=== PATIENT | male | born 1930 | race African-American/Black ===

== ENCOUNTER 2016-12-27 11:11 | Inpatient (IN) | payer MEDICARE ==
[~2016-12-27] VITALS: Ht 177.8 cm; Wt 63.1 kg
[2016-12-27] VITALS (10 sets, daily range): BP systolic 147–167; BP diastolic 75–96; PULSE 71–100; RESP 16–18; TEMP 97.4–98.1; O2SAT 95–99
[~2016-12-27 11:11] MED LIST: ARIC5TAB PO; AUGM500T7 PO; GLIP10 PO; GLIP5 PO; LACT20SO4 PO; LEVO75TA3 PO; LOVA20TA PO
[2016-12-27] MEDS ORDERED: LISI10TA3 PO (11:40)
[2016-12-27] MEDS ORDERED: LEVO75TA3 PO (11:40)
[2016-12-27] MEDS ORDERED: LOVA20TA PO (11:40)
[2016-12-27] MEDS ORDERED: ARIC10TA PO (11:40)
[2016-12-27] MEDS ORDERED: GLIM4TAB PO (11:41)
[2016-12-27] MEDS ORDERED: SODIUM CHLOR 0.9% 1000 ML INJ 1,000 ML IV ONE ×2 (12:09→12:39)
--- NOTE | 2016-12-27 12:13 | PD ---
HPI Chief Complaint: Diabetic Time Seen by Provider: 12:13 Travel History International Travel<30 days: No Contact w/Intl Traveler<30days: No Traveled to known affect area: No History of Present Illness HPI 86-year-old male with a history of hypertension, diabetes, hypothyroidism, hyperlipidemia, dementia, chronic kidney disease is brought to the emergency department by EMS for evaluation of loss of appetite, weakness and confusion for 2 days. Per EMS the patient was brought from home where he lives with his . He has not been eating for 2 days and has not taken any of his medications in 2 days. Per EMS the patient is slightly more confused than his baseline. Per EMS his fingerstick glucose was critically high. The patient is awake, alert and oriented to person and place. He is unsure of the year and why he is in the hospital. He denies any complaints. He denies any chest pain , shortness of breath, abdominal pain, nausea, vomiting, diarrhea on the headache, lightheadedness, dizziness. No other complaints. PFSH Past Medical History Cardiovascular Problems: Yes High Cholesterol: Yes Dementia: Yes Diabetes: Yes Patient Takes Glucophage: No Diminished Hearing: No Genitourinary: No Hypertension: Yes Reproductive: No Respiratory: No Thyroid Disease: Yes Tetanus Vaccination: Unknown Influenza Vaccination: Yes Social History Alcohol Use: No Tobacco Use: No Substance Use: No Allergies-Medications (Allergen,Severity, Reaction): Coded Allergies: No Known Allergies (Verified , 12/27/16) Reported Meds & Prescriptions Reported Meds & Active Scripts Active Reported Glimepiride 4 Mg Tab 4 Mg PO BIDAC Lovastatin 20 Mg Tab 20 Mg PO DAILY Lisinopril 10 Mg Tab 10 Mg PO DAILY Aricept (Donepezil) 10 Mg Tab 10 Mg PO HS Levothyroxine (Levothyroxine Sodium) 75 Mcg Tab 75 Mcg PO DAILY Review of Systems Except as stated in HPI: all other systems reviewed are Neg Physical Exam Narrative GENERAL: Thin elderly male patient in no acute distress. SKIN: Warm and dry. HEAD: Normocephalic and atraumatic. EYES: No injection, drainage, or hyphema noted. PERRLA. EOMI. ENT: Lips are dry, poor dentition. No nasal drainage noted. Oropharynx is clear. NECK: Supple and the trachea is midline. CARDIOVASCULAR: Regular rate and rhythm. RESPIRATORY: Breath sounds are equal bilaterally with no accessory muscle use, wheezing, rhonchi, or crackles. GASTROINTESTINAL: Abdomen is soft, non-tender, and nondistended. MUSCULOSKELETAL: No obvious deformities, swelling, cyanosis, or ecchymosis is present throughout the upper and lower extremities. Patient has full range of motion without any signs of neurovascular compromise. NEUROLOGICAL: Awake, alert, and oriented. Normal speech and gait. Cranial nerves are grossly intact. Data Data Last Documented VS Vital Signs Date Time Temp Pulse Resp B/P Pulse Ox O2 Delivery O2 Flow Rate FiO2 12/27/16 11:50 18 98 Room Air 12/27/16 11:21 96 12/27/16 11:21 97.8 156/84 Orders Electrocardiogram (12/27/16 ) Complete Blood Count With Diff (12/27/16 12:09) Comprehensive Metabolic Panel (12/27/16 12:09) Beta Hydroxybutyrate (Acetone) (12/27/16 12:09) Urinalysis - C+S If Indicated (12/27/16 12:09) Chest, Single Ap (12/27/16 12:09) Ecg Monitoring (12/27/16 12:09) Iv Access Insert/Monitor (12/27/16 12:09) Oximetry (12/27/16 12:09) NPO (12/27/16 12:09) Sodium Chlor 0.9% 1000 Ml Inj (Ns 1000 M (12/27/16 12:09) Sodium Chlor 0.9% 1000 Ml Inj (Ns 1000 M (12/27/16 12:39) Sodium Chloride 0.9% Flush (Ns Flush) (12/27/16 12:15) Troponin I (12/27/16 12:12) Community Relations Police Lieutenant / Telemetry [id number] (12/27/16 13:25) ^ Insert Iv (12/27/16 13:25) Diet Npo (12/27/16 Lunch) Sodium Chlor 0.9% 1000 Ml Inj (Ns 1000 M (12/27/16 13:25) Dext 5%-Nacl 0.9% 1000 Ml Inj (D5w-Ns 10 (12/27/16 13:25) Insulin Human Regular Inj (Novolin R Inj (12/27/16 13:30) Insulin Regular (Iv Infusion) (Novolin R (12/27/16 13:30) Potassium Chlor 40 Meq Premix (Kcl 40 Me (12/27/16 13:30) Potassium Chlor 40 Meq Premix (Kcl 40 Me (12/27/16 13:30) Potassium Chlor 20 Meq Premix (Kcl 20 Me (12/27/16 13:30) Potassium Chlor 20 Meq Premix (Kcl 20 Me (12/27/16 13:30) Potassium Chlor 20 Meq Premix (Kcl 20 Me (12/27/16 13:30) Potassium Chlor 20 Meq Premix (Kcl 20 Me (12/27/16 13:30) Potassium Chlor 20 Meq Premix (Kcl 20 Me (12/27/16 13:30) Potassium Chlor 20 Meq Premix (Kcl 20 Me (12/27/16 13:30) Sodium Bicarbonate 8.4% Inj (Sodium Bica (12/27/16 13:30) Sodium Bicarbonate 8.4% Inj (Sodium Bica (12/27/16 13:30) Sodium Phosphate Inj (Sodium Phosphate I (12/27/16 13:30) Hemoglobin (Hgb) A1c (12/27/16 13:25) Basic Metabolic Panel (Bmp) (12/27/16 18:25) Basic Metabolic Panel (Bmp) (12/28/16 00:25) Basic Metabolic Panel (Bmp) (12/28/16 06:25) Basic Metabolic Panel (Bmp) (12/28/16 12:25) Magnesium (Mg) (12/27/16 18:25) Magnesium (Mg) (12/28/16 00:25) Magnesium (Mg) (12/28/16 06:25) Magnesium (Mg) (12/28/16 12:25) Phosphorus (Po4) (12/27/16 18:25) Phosphorus (Po4) (12/28/16 00:25) Phosphorus (Po4) (12/28/16 06:25) Phosphorus (Po4) (12/28/16 12:25) Beta Hydroxybutyrate (Acetone) (12/28/16 00:25) Beta Hydroxybutyrate (Acetone) (12/28/16 12:25) Admit Order (Ed Use Only) (12/27/16 13:36) Labs Laboratory Tests Test 12/27/16 12/27/16 12:11 12:50 White Blood Count 8.0 TH/MM3 Red Blood Count 4.47 MIL/MM3 Hemoglobin 13.6 GM/DL Hematocrit 44.8 % Mean Corpuscular Volume 100.3 FL Mean Corpuscular Hemoglobin 30.5 PG Mean Corpuscular Hemoglobin 30.4 % Concent Red Cell Distribution Width 14.6 % Platelet Count 105 TH/MM3 Mean Platelet Volume 10.7 FL Neutrophils (%) (Auto) 79.1 % Lymphocytes (%) (Auto) 13.3 % Monocytes (%) (Auto) 7.4 % Eosinophils (%) (Auto) 0.0 % Basophils (%) (Auto) 0.2 % Neutrophils # (Auto) 6.3 TH/MM3 Lymphocytes # (Auto) 1.1 TH/MM3 Monocytes # (Auto) 0.6 TH/MM3 Eosinophils # (Auto) 0.0 TH/MM3 Basophils # (Auto) 0.0 TH/MM3 CBC Comment DIFF FINAL Differential Comment Sodium Level 149 MEQ/L Potassium Level 5.6 MEQ/L Chloride Level 113 MEQ/L Carbon Dioxide Level 20.7 MEQ/L Anion Gap 15 MEQ/L Blood Urea Nitrogen 79 MG/DL Creatinine 4.90 MG/DL Estimat Glomerular Filtration 14 ML/MIN Rate Random Glucose 876 MG/DL Calcium Level 9.4 MG/DL Total Bilirubin 0.8 MG/DL Aspartate Amino Transf 20 U/L (AST/SGOT) Alanine Aminotransferase 27 U/L (ALT/SGPT) Alkaline Phosphatase 74 U/L Troponin I 0.07 NG/ML Total Protein 8.5 GM/DL Albumin 3.9 GM/DL B-Hydroxybutyrate 4.46 MMOL/L Urine Color LIGHT-YELLOW Urine Turbidity CLEAR Urine pH 5.0 Urine Specific [place] 1.021 Urine Protein NEG mg/dL Urine Glucose (UA) 1000 mg/dL Urine Ketones 10 mg/dL Urine Occult Blood SMALL Urine Nitrite NEG Urine Bilirubin NEG Urine Urobilinogen LESS THAN 2.0 MG/DL Urine Leukocyte Esterase NEG Urine RBC LESS THAN 1 /hpf Urine WBC LESS THAN 1 /hpf Urine Bacteria RARE /hpf Urine Mucus FEW /lpf Microscopic Urinalysis Comment CULT NOT INDICATED MDM Medical Decision Making Medical Screen Exam Complete: Yes Emergency Medical Condition: Yes Differential Diagnosis DKA versus dehydration versus electrolyte abnormality versus UTI versus dementia Narrative Course 86-year-old male is brought to the emergency department by EMS for evaluation of confusion, weakness and loss of appetite for 2 days. Patient is afebrile, vital signs are stable. Fingerstick glucose is too high to read. On physical exam he appears clinically dehydrated. No focal neurologic deficits. IV access is obtained, labs have been drawn and sent. Patient is given 2 L of fluid. CBC is unremarkable. CMP shows acute kidney injury with an elevated creatinine of 4.9, BUN 79. Hyperkalemia with a potassium of 5.6, elevated bicarbonate of 20.7. Hyperglycemia critically elevated at 876. Troponin is elevated at 0.07, likely secondary to dehydration. Beta hydroxybutyrate is elevated at 4.46. Urinalysis shows glucosuria and 10 ketones. Chest x-ray is negative. The patient has DKA with acute kidney injury. He has remained stable and without complaint while here in the emergency department. He is placed on an insulin drip will be admitted to the ICU under [facility]'s service. I discussed the case with my attending physician Dr. Garcia who is aware of the patients history, physical examination findings, and treatment plan. Physician Communication Physician Communication I spoke with Dr. Payan [facility] who agrees to admit the patient to his service. Diagnosis Primary Impression: DKA (diabetic ketoacidoses) Qualified Code: E13.10 - Diabetic ketoacidosis without coma associated with type 2 diabetes mellitus Additional Impression: SARAI (acute kidney injury) Admitting Information Admitting Physician Requests: Admit Sherry Rendon Dec 27, 2016 12:13
[2016-12-27] MEDS ORDERED: SODIUM CHLORIDE 0.9% FLUSH 5 ML FLUSH IVF PRN (12:15)
--- NOTE | 2016-12-27 12:44 | RADRPT ---
EXAM DATE/TIME: 12/27/2016 12:09 [place] COMPARISON: CHEST SINGLE AP, November 03, 2014, 5:02. INDICATIONS : Short of breath. MEDICAL HISTORY : Hypertension. Diabetes mellitus type II. SURGICAL HISTORY : None. ENCOUNTER: Initial ACUITY: 1 day PAIN SCORE: 0/10 LOCATION: Bilateral chest FINDINGS: A single view of the chest demonstrates the lungs to be symmetrically aerated without evidence of mas s, infiltrate or effusion. The cardiomediastinal contours are unremarkable with age-appropriate athe rosclerotic unwinding of the aorta. Osseous structures are intact. CONCLUSION: No acute disease. No significant change has occurred. Christian Simon MD on December 27, 2016 at 12:42 Board Certified Radiologist. This report was verified electronically.
[2016-12-27 12:48] LABS: AUTOMATED NEUTROPHIL # 6.3 TH/MM3 (1.8-7.7); BASOPHIL % 0.2 % (0.0-2.0); HEMATOCRIT 44.8 % (39.0-51.0); HEMO FLAGS DIFF FINAL; LYMPH % 13.3 % (9.0-44.0); LYMPHOCYTE # 1.1 TH/MM3 (1.0-4.8); MEAN CELL VOLUME 100.3 FL (80.0-100.0); MEAN CORPUSCULAR HEMOGLOBIN 30.5 PG (27.0-34.0); MEAN CORPUSCULAR HGB CONC 30.4 % (32.0-36.0); MONO % 7.4 % (0.0-8.0); NEUT % 79.1 % (16.0-70.0); PLATELET COUNT 105 TH/MM3 (150-450); RED BLOOD COUNT 4.47 MIL/MM3 (4.50-5.90); RED CELL DISTRIBUTION WIDTH 14.6 % (11.6-17.2)
[2016-12-27 13:02] LABS: ANION GAP 15 MEQ/L (5-15); AST (GOT) 20 U/L (15-37); BICARBONATE 20.7 MEQ/L (21.0-32.0); BLOOD UREA NITROGEN 79 MG/DL (7-18); CHLORIDE 113 MEQ/L (98-107); GLOMERULAR FILTRATION RATE 14 ML/MIN (>89); POTASSIUM 5.6 MEQ/L (3.5-5.1); SODIUM (NA) 149 MEQ/L (136-145)
[2016-12-27 13:08] LABS: ALKALINE PHOSPHATASE 74 U/L (45-117); ALT (GPT) 27 U/L (12-78); BETA-HYDROXYBUTYRATE 4.46 MMOL/L (0.00-0.39); TOTAL BILIRUBIN ADULT 0.8 MG/DL (0.2-1.0)
[2016-12-27 13:18] LABS: BACTERIA, URINE RARE /hpf; BLOOD, URINE SMALL (NEG); COMMENT (UR) CULT NOT INDICATED; CULTURE IF INDICATED CULT NOT INDICATED; GLUCOSE,URINE 1000 mg/dL (NEG); KETONE, URINE 10 mg/dL (NEG); MUCUS URINE FEW /lpf (OCC); NITRITE,URINE NEG (NEG); URINE COLOR LIGHT-YELLOW (YELLW/STRAW)
[2016-12-27] MEDS ORDERED: DEXT 5%-NACL 0.9% 1000 ML INJ 1,000 ML IV SCH (13:25)
[2016-12-27] MEDS ORDERED: INSULIN HUMAN REGULAR 1,000 UNITS/10 ML VIAL IV PUSH ONE (13:30)
[2016-12-27] MEDS ORDERED: SODIUM PHOSPHATE INJ 15 MMOL in SODIUM CHLORIDE 0.9% INJ 100 ML IV PRN (13:30)
[2016-12-27] MEDS ORDERED: POTASSIUM CHLOR 20 MEQ PREMIX 100 ML IV PRN ×6 (13:30)
[2016-12-27] MEDS ORDERED: POTASSIUM CHLOR 40 MEQ PREMIX 100 ML IV PRN ×2 (13:30)
[2016-12-27] MEDS ORDERED: SODIUM BICARBONATE 8.4% SOLN 50 MEQ/50 ML VIAL IV PRN ×2 (13:30)
[2016-12-27] MEDS ORDERED: INSULIN REGULAR (IV INFUSION) 100 UNITS in SODIUM CHLORIDE 0.9% INJ 99 ML IV SCH (13:30)
[2016-12-27] MEDS: SODIUM CHLOR 0.9% 1000 ML INJ 1,000 ML IV SCH ×3 (13:48→23:00)
[2016-12-27] MEDS ORDERED: ACETAMINOPHEN 325 MG TAB PO PRN (14:15)
[2016-12-27] MEDS ORDERED: ONDANSETRON HCL 4 MG/2 ML VIAL IV PRN (14:15)
--- NOTE | 2016-12-27 14:21 | HHI.HP ---
HPI Service [facility] Hospitalists Primary Care Physician Raciel Avila M.D. Admission Diagnosis DKA, SARAI Chief Complaint: DKA, confusion Travel History International Travel<30 Days: No Contact w/Intl Traveler <30 Da: No Traveled to Known Affected Are: No History of Present Illness Mr. Gonzalez is an 84 y/o AAM with diabetes mellitus, noncompliant, hx of DKA, dementia, CKD, hypertension, dyslipidemia, and hypothyroidism who presented to the ED at [facility] with reported loss of appetite, weakness and confusion x 2 days. Per ED documentation the patient was brought from home where he lives with his . He has not been eating for 2 days and has not taken any of his medications in 2 days. The patient is reportedly more confused than his baseline. The patient is awake, alert and oriented to person and place but he is unable to provide any reliable information at the time of exam and the history was obtained from the chart and old records. Pts labs at admission noted acute kidney injury with an elevated creatinine of 4.9, BUN 79, GFR 14, hyperkalemia with a potassium of 5.6, elevated bicarbonate of 20.7, hyperglycemia critically elevated at 876. He was also noted to have a mildly elevated troponin at 0.07, likely secondary to dehydration. Beta hydroxybutyrate is elevated at 4.46. Urinalysis shows glucosuria and 10 ketones. He was started on Insulin gtt in the ER per protocol. He denies any complaints at the time of examination, specifically any chest pain, shortness of breath, abdominal pain, nausea, vomiting, diarrhea, headache, lightheadedness , or dizziness. Review of Systems ROS Limitations: Altered Mental Status, Poor Historian Past Family Social History Past Medical History History obtained from the chart and old records: Diabetes mellitus, noncompliant, hx of DKA HTN Hyperlipidemia Dementia Hypothyroidism CKD, stage 3 Past Surgical History None reported Reported Medications Glimepiride 4 Mg Tab 4 Mg PO BIDAC Lovastatin 20 Mg Tab 20 Mg PO DAILY Lisinopril 10 Mg Tab 10 Mg PO DAILY Aricept (Donepezil) 10 Mg Tab 10 Mg PO HS Levothyroxine (Levothyroxine Sodium) 75 Mcg Tab 75 Mcg PO DAILY Allergies: Coded Allergies: No Known Allergies (Verified , 12/27/16) Family History Unable to obtain from the pt Social History Unable to obtain from the pt. Physical Exam Vital Signs Vital Signs Date Time Temp Pulse Resp B/P Pulse Ox O2 Delivery O2 Flow Rate FiO2 12/27/16 11:50 18 98 Room Air 12/27/16 11:21 96 18 96 Room Air 12/27/16 11:21 97.8 100 18 156/84 95 Physical Exam GENERAL: This is a thin elderly male in NAD, confused. HEENT: Atraumatic. Normocephalic. No temporal or scalp tenderness. No scleral icterus. Poor dentition. Airway patent. NECK: Trachea midline, supple, nontender. CARDIO: Regular. RESP: CTA bilaterally. No wheezes, rales, or rhonchi. ABD: +BS, soft, non-tender, nondistended. EXT: Extremities without clubbing, cyanosis, or edema. NEURO: Awake and alert. Motor and sensory grossly within normal limits. Normal speech. Laboratory Laboratory Tests Test 12/27/16 12/27/16 12:11 12:50 White Blood Count 8.0 Red Blood Count 4.47 Hemoglobin 13.6 Hematocrit 44.8 Mean Corpuscular Volume 100.3 Mean Corpuscular Hemoglobin 30.5 Mean Corpuscular Hemoglobin 30.4 Concent Red Cell Distribution Width 14.6 Platelet Count 105 Mean Platelet Volume 10.7 Neutrophils (%) (Auto) 79.1 Lymphocytes (%) (Auto) 13.3 Monocytes (%) (Auto) 7.4 Eosinophils (%) (Auto) 0.0 Basophils (%) (Auto) 0.2 Neutrophils # (Auto) 6.3 Lymphocytes # (Auto) 1.1 Monocytes # (Auto) 0.6 Eosinophils # (Auto) 0.0 Basophils # (Auto) 0.0 CBC Comment DIFF FINAL Differential Comment Sodium Level 149 Potassium Level 5.6 Chloride Level 113 Carbon Dioxide Level 20.7 Anion Gap 15 Blood Urea Nitrogen 79 Creatinine 4.90 Estimat Glomerular Filtration 14 Rate Random Glucose 876 Calcium Level 9.4 Total Bilirubin 0.8 Aspartate Amino Transf 20 (AST/SGOT) Alanine Aminotransferase 27 (ALT/SGPT) Alkaline Phosphatase 74 Troponin I 0.07 Total Protein 8.5 Albumin 3.9 B-Hydroxybutyrate 4.46 Urine Color LIGHT-YELLOW Urine Turbidity CLEAR Urine pH 5.0 Urine Specific [place] 1.021 Urine Protein NEG Urine Glucose (UA) 1000 Urine Ketones 10 Urine Occult Blood SMALL Urine Nitrite NEG Urine Bilirubin NEG Urine Urobilinogen LESS THAN 2.0 Urine Leukocyte Esterase NEG Urine RBC LESS THAN 1 Urine WBC LESS THAN 1 Urine Bacteria RARE Urine Mucus FEW Microscopic Urinalysis Comment CULT NOT INDICATED Result Diagram: 12/27/16 1211 12/27/16 1211 Imaging Last Impressions Chest X-Ray 12/27/16 1209 Signed Impressions: Service Date/Time: Tuesday, December 27, 2016 12:09 - CONCLUSION: No acute disease. No significant change has occurred. Christian Simon MD Septic Shock Reassessment Heart: Regular rate and rhythm Lungs: Clear Skin: Warm Assessment and Plan Problem List: (1) DKA (diabetic ketoacidoses) Status: Acute Plan: - Pt was brought to the ED on 12/27/16 with loss of appetite, weakness and confusion x 2 days. - He has reportedly had poor oral intake and has not taken any of his medications in 2 days. - The patient is reportedly more confused than his baseline. - Pts labs at admission noted acute kidney injury with an elevated creatinine of 4.9, BUN 79, GFR 14, hyperkalemia with a potassium of 5.6, elevated bicarbonate of 20.7, hyperglycemia critically elevated at 876. - He was also noted to have a mildly elevated troponin at 0.07, likely secondary to dehydration. - He was started on Insulin gtt in the ER per protocol. - Pt will be admitted to ICU - Labs ordered per protocol - Hold home oral meds - Check Hgb A1C - Supportive care - DVT prophylaxis (2) SARAI (acute kidney injury) Status: Acute Plan: - See above. - Likely secondary to dehydration - IVF - Monitor labs (3) Dehydration Status: Acute Plan: - See above. (4) Altered mental status Status: Chronic Plan: - Pt with baseline dementia but reportedly more confused than baseline, likely secondary to DKA - Resume Aricept (5) HTN (hypertension) Status: Chronic Plan: - Hole Lisinopril due to SARAI - Clonidine PRN - Monitor (6) Hyperlipidemia Status: Chronic Plan: - Cont. home meds (7) Dementia Status: Chronic Assessment and Plan Patient examined. Assessment and plan formulated with Belkis DOMINGUEZ I agree with the above. DKA. SARAI. DEHYDRATION. IVF. INSULIN GTT PROTOCOL. MONITOR BMP. Physician Certification 2 Midnight Certification Type: Admission for Inpatient Services Order for Inpatient Services The services are ordered in accordance with Medicare regulations or non- Medicare payer requirements, as applicable. In the case of services not specified as inpatient-only, they are appropriately provided as inpatient services in accordance with the 2-midnight benchmark. Estimated LOS (days): 3 3 days is the estimated time the patient will need to remain in the hospital, assuming treatment plan goals are met and no additional complications. Post-Hospital Plan: Not yet determined Problem Qualifiers (1) DKA (diabetic ketoacidoses): Qualified Code: E13.10 - Diabetic ketoacidosis without coma associated with type 2 diabetes mellitus Belkis Beltran Dec 27, 2016 14:21 Chauncey Alvarado MD Dec 27, 2016 19:04
--- NOTE | 2016-12-27 14:59 | PD ---
Data Data Last Documented VS Vital Signs Date Time Temp Pulse Resp B/P Pulse Ox O2 Delivery O2 Flow Rate FiO2 12/27/16 11:50 18 98 Room Air 12/27/16 11:21 96 12/27/16 11:21 97.8 156/84 Orders Electrocardiogram (12/27/16 ) Complete Blood Count With Diff (12/27/16 12:09) Comprehensive Metabolic Panel (12/27/16 12:09) Beta Hydroxybutyrate (Acetone) (12/27/16 12:09) Urinalysis - C+S If Indicated (12/27/16 12:09) Chest, Single Ap (12/27/16 12:09) Ecg Monitoring (12/27/16 12:09) Iv Access Insert/Monitor (12/27/16 12:09) Oximetry (12/27/16 12:09) NPO (12/27/16 12:09) Sodium Chlor 0.9% 1000 Ml Inj (Ns 1000 M (12/27/16 12:09) Sodium Chlor 0.9% 1000 Ml Inj (Ns 1000 M (12/27/16 12:39) Sodium Chloride 0.9% Flush (Ns Flush) (12/27/16 12:15) Troponin I (12/27/16 12:12) Temperature Regulator / Telemetry [id number].[id number] (12/27/16 13:25) ^ Insert Iv (12/27/16 13:25) Diet Npo (12/27/16 Lunch) Sodium Chlor 0.9% 1000 Ml Inj (Ns 1000 M (12/27/16 13:25) Dext 5%-Nacl 0.9% 1000 Ml Inj (D5w-Ns 10 (12/27/16 13:25) Insulin Human Regular Inj (Novolin R Inj (12/27/16 13:30) Insulin Regular (Iv Infusion) (Novolin R (12/27/16 13:30) Potassium Chlor 40 Meq Premix (Kcl 40 Me (12/27/16 13:30) Potassium Chlor 40 Meq Premix (Kcl 40 Me (12/27/16 13:30) Potassium Chlor 20 Meq Premix (Kcl 20 Me (12/27/16 13:30) Potassium Chlor 20 Meq Premix (Kcl 20 Me (12/27/16 13:30) Potassium Chlor 20 Meq Premix (Kcl 20 Me (12/27/16 13:30) Potassium Chlor 20 Meq Premix (Kcl 20 Me (12/27/16 13:30) Potassium Chlor 20 Meq Premix (Kcl 20 Me (12/27/16 13:30) Potassium Chlor 20 Meq Premix (Kcl 20 Me (12/27/16 13:30) Sodium Bicarbonate 8.4% Inj (Sodium Bica (12/27/16 13:30) Sodium Bicarbonate 8.4% Inj (Sodium Bica (12/27/16 13:30) Sodium Phosphate Inj (Sodium Phosphate I (12/27/16 13:30) Hemoglobin (Hgb) A1c (12/27/16 13:25) Basic Metabolic Panel (Bmp) (12/27/16 18:25) Basic Metabolic Panel (Bmp) (12/28/16 00:25) Basic Metabolic Panel (Bmp) (12/28/16 06:25) Basic Metabolic Panel (Bmp) (12/28/16 12:25) Magnesium (Mg) (12/27/16 18:25) Magnesium (Mg) (12/28/16 00:25) Magnesium (Mg) (12/28/16 06:25) Magnesium (Mg) (12/28/16 12:25) Phosphorus (Po4) (12/27/16 18:25) Phosphorus (Po4) (12/28/16 00:25) Phosphorus (Po4) (12/28/16 06:25) Phosphorus (Po4) (12/28/16 12:25) Beta Hydroxybutyrate (Acetone) (12/28/16 00:25) Beta Hydroxybutyrate (Acetone) (12/28/16 12:25) Admit Order (Ed Use Only) (12/27/16 13:36) Labs Laboratory Tests Test 12/27/16 12/27/16 12:11 12:50 White Blood Count 8.0 TH/MM3 Red Blood Count 4.47 MIL/MM3 Hemoglobin 13.6 GM/DL Hematocrit 44.8 % Mean Corpuscular Volume 100.3 FL Mean Corpuscular Hemoglobin 30.5 PG Mean Corpuscular Hemoglobin 30.4 % Concent Red Cell Distribution Width 14.6 % Platelet Count 105 TH/MM3 Mean Platelet Volume 10.7 FL Neutrophils (%) (Auto) 79.1 % Lymphocytes (%) (Auto) 13.3 % Monocytes (%) (Auto) 7.4 % Eosinophils (%) (Auto) 0.0 % Basophils (%) (Auto) 0.2 % Neutrophils # (Auto) 6.3 TH/MM3 Lymphocytes # (Auto) 1.1 TH/MM3 Monocytes # (Auto) 0.6 TH/MM3 Eosinophils # (Auto) 0.0 TH/MM3 Basophils # (Auto) 0.0 TH/MM3 CBC Comment DIFF FINAL Differential Comment Sodium Level 149 MEQ/L Potassium Level 5.6 MEQ/L Chloride Level 113 MEQ/L Carbon Dioxide Level 20.7 MEQ/L Anion Gap 15 MEQ/L Blood Urea Nitrogen 79 MG/DL Creatinine 4.90 MG/DL Estimat Glomerular Filtration 14 ML/MIN Rate Random Glucose 876 MG/DL Calcium Level 9.4 MG/DL Total Bilirubin 0.8 MG/DL Aspartate Amino Transf 20 U/L (AST/SGOT) Alanine Aminotransferase 27 U/L (ALT/SGPT) Alkaline Phosphatase 74 U/L Troponin I 0.07 NG/ML Total Protein 8.5 GM/DL Albumin 3.9 GM/DL B-Hydroxybutyrate 4.46 MMOL/L Urine Color LIGHT-YELLOW Urine Turbidity CLEAR Urine pH 5.0 Urine Specific [place] 1.021 Urine Protein NEG mg/dL Urine Glucose (UA) 1000 mg/dL Urine Ketones 10 mg/dL Urine Occult Blood SMALL Urine Nitrite NEG Urine Bilirubin NEG Urine Urobilinogen LESS THAN 2.0 MG/DL Urine Leukocyte Esterase NEG Urine RBC LESS THAN 1 /hpf Urine WBC LESS THAN 1 /hpf Urine Bacteria RARE /hpf Urine Mucus FEW /lpf Microscopic Urinalysis Comment CULT NOT INDICATED MDM Supervised Visit with OSVALDO: Yes Narrative Course The history, exam, and medical decision-making in the associated mid-level provider note were completed with my assistance. I reviewed and agree with the findings presented. I attest that I had a [id number] encounter with the patient on the same day, and personally performed and documented my assessment and findings in the medical record. *My assessment and Findings: 86-year-old male with dementia, diabetes, not taking his medicines with hyperglycemia. Ketosis but only very mild acidosis. Recommend IV fluids, insulin, admission and treatment. Diagnosis Primary Impression: DKA (diabetic ketoacidoses) Qualified Code: E13.10 - Diabetic ketoacidosis without coma associated with type 2 diabetes mellitus Additional Impression: SARAI (acute kidney injury) Ishan Garcia MD Dec 27, 2016 14:59
[2016-12-27 15:08] LABS: BLOOD GAS BASE EXCESS -9.4 mmol/L (-2-2); BLOOD GAS CARBOXYHEMOGLOBIN 1.4 % (0-4); BLOOD GAS HCO3 16 mmol/L (22-26); BLOOD GAS METHEMOGLOBIN 2.6 % (0-2); BLOOD GAS O2 HGB SATURATION 84 % (90-100); BLOOD GAS OXYGEN CONTENT 13.6 Vol % (12.0-20.0); BLOOD GAS PCO2 37 mmHg (38-42); BLOOD GAS PO2 60 mmHG (61-120); BLOOD GAS TOTAL HGB 11.6 G/DL (12.0-16.0); CRITICAL VALUE YES; TEMP CORR TO 98.6
[2016-12-27 15:09] LABS: DRAW SITE LT RADIAL; FIO2 21 %; NUMBER OF ARTERIAL PUNCTURES 1; STAT YES; ULNAR PULSE PRESENT
[2016-12-27 19:24] LABS: ANION GAP 5 MEQ/L (5-15); BICARBONATE 25.6 MEQ/L (21.0-32.0); BLOOD UREA NITROGEN 59 MG/DL (7-18); CHLORIDE 128 MEQ/L (98-107); GLOMERULAR FILTRATION RATE 20 ML/MIN (>89); MAGNESIUM 2.9 MG/DL (1.5-2.5); POTASSIUM 3.6 MEQ/L (3.5-5.1)
[2016-12-27 19:29] LABS: SODIUM (NA) 159 MEQ/L (136-145)
[2016-12-27] MEDS ORDERED: DEXTROSE 5% IN WATE 1000ML INJ 1,000 ML IV SCH (20:00)
--- NOTE | 2016-12-27 21:39 | EKG ---
Date Performed: 12/27/2016 Time Performed: 11:22:31 PTAGE: 86 years EKG: Sinus rhythm WITH OCCASIONAL SUPRAVENTRICULAR PREMATURE COMPLEXES MARKED LEFT AXIS DEVIATION RIGHT BUNDLE BRANCH BLOCK ABNORMAL ECG PREVIOUS TRACING : 11/04/2014 08.18 Compared to prior tracing no significant change DOCTOR: Arlet Espinoza Interpretating Date/Time 12/27/2016 21:38:40
[2016-12-27] MEDS ORDERED: CHLORHEXIDINE GLUCONATE 2 % 1 PACK (2 CLOTHS)(extra cloths) TOP PRN (22:00)
[2016-12-27] MEDS ORDERED: SODIUM CHLOR 0.45% 1000 ML INJ 1,000 ML IV SCH (23:15)
[2016-12-27] MEDS ORDERED: INSULIN DETEMIR 100 UNITS/ML VIAL SQ ONE (23:15)
[2016-12-27] MEDS: DONEPEZIL HCL 5 MG TAB PO SCH (23:24)
[2016-12-27] MEDS ORDERED: DEXTROSE 50% IN WATER 50 ML VIAL(D50) IV PUSH PRN (23:30)
[2016-12-27] MEDS ORDERED: GLUCAGON 1 MG/ML VIAL OTHER PRN (23:30)
[2016-12-28] VITALS (9 sets, daily range): BP systolic 139–156; BP diastolic 73–91; PULSE 62–73; RESP 18–39; TEMP 97.7–98.6; O2SAT 93–100
[2016-12-28] MEDS: MEDIUM DOSE INSULIN NOVOLOG SUPPLEMENTAL SCALE SQ SCH ×6 (01:00→07:00)
[2016-12-28 01:49] LABS: BETA-HYDROXYBUTYRATE 0.12 MMOL/L (0.00-0.39); BICARBONATE 26.5 MEQ/L (21.0-32.0); MAGNESIUM 2.4 MG/DL (1.5-2.5); POTASSIUM 4.2 MEQ/L (3.5-5.1)
[2016-12-28] MEDS: DEXTROSE 50% IN WATER 50 ML SYRINGE ONE ×2 (02:16→03:37)
[2016-12-28] MEDS: CHLORHEXIDINE GLUCONATE 2 % 1 PACK (2 CLOTHS)(taper/protocol) TOP SCH (04:00)
[2016-12-28] MEDS: LEVOTHYROXINE SODIUM 75 MCG TAB PO SCH (05:31)
[2016-12-28 08:06] LABS: BICARBONATE 26.5 MEQ/L (21.0-32.0); MAGNESIUM 2.3 MG/DL (1.5-2.5)
[2016-12-28] MEDS: PRAVASTATIN SOD 20 MG TAB PO SCH (09:00)
[2016-12-28] MEDS ORDERED: DEXTROSE 5% IN WATE 1000ML INJ 1,000 ML IV SCH (09:30)
--- NOTE | 2016-12-28 09:31 | HHI.PR ---
Subjective Remarks demented. nad Objective Vitals heart reg lung cta abd s/nt ext no edema demented. Vital Signs Date Time Temp Pulse Resp B/P Pulse Ox O2 Delivery O2 Flow Rate FiO2 12/28/16 06:00 62 12/28/16 04:00 66 12/28/16 04:00 97.7 66 39 146/73 100 12/28/16 02:00 73 12/28/16 00:00 67 12/28/16 00:00 98.0 67 21 151/87 96 12/27/16 22:00 71 12/27/16 21:49 97.4 72 16 166/96 99 12/27/16 20:00 80 18 167/81 98 Nasal Cannula 2 12/27/16 18:04 98.1 89 17 156/75 99 Nasal Cannula 2 12/27/16 17:18 96 18 161/77 99 Nasal Cannula 2 12/27/16 16:10 97.8 98 18 150/82 98 Nasal Cannula 2 12/27/16 15:04 90 17 147/76 97 Room Air 12/27/16 14:07 97.8 89 18 162/89 97 Room Air 12/27/16 11:50 18 98 Room Air 12/27/16 11:21 96 18 96 Room Air 12/27/16 11:21 97.8 100 18 156/84 95 12/27/16 12/27/16 12/28/16 15:00 23:00 07:00 Intake Total 467 ml 710 ml Output Total 100 ml 600 ml Balance 367 ml 110 ml Intake Oral 0 ml 0 ml IV Total 467 ml 710 ml Output Urine Total 100 ml 600 ml # Bowel Movements 0 0 Result Diagram: 12/27/16 1211 12/28/16 0528 Imaging Last Impressions Chest X-Ray 12/27/16 1209 Signed Impressions: Service Date/Time: Tuesday, December 27, 2016 12:09 - CONCLUSION: No acute disease. No significant change has occurred. Christian Simon MD A/P Problem List: (1) DKA (diabetic ketoacidoses) Status: Acute Plan: - Pt was brought to the ED on 12/27/16 with loss of appetite, weakness and confusion x 2 days. - He has reportedly had poor oral intake and has not taken any of his medications in 2 days. - The patient is reportedly more confused than his baseline. - DKA -SARAI -Dehydration -Hypernatremia -Acute worsening of mental status due to above. off insulin gtt change ivf to d5w and monitor na level cont ssi q4hr check today. cont monitor renal function dvt prophylaxis PT eval. (2) SARAI (acute kidney injury) Status: Acute Plan: - See above. - Likely secondary to dehydration - IVF - Monitor labs (3) Dehydration Status: Acute Plan: - See above. (4) Altered mental status Status: Chronic Plan: - Pt with baseline dementia but reportedly more confused than baseline, likely secondary to DKA - Resume Aricept (5) HTN (hypertension) Status: Chronic Plan: - Hole Lisinopril due to SARAI - Clonidine PRN - Monitor (6) Hyperlipidemia Status: Chronic Plan: - Cont. home meds (7) Dementia Status: Chronic Problem Qualifiers (1) DKA (diabetic ketoacidoses): Qualified Code: E13.10 - Diabetic ketoacidosis without coma associated with type 2 diabetes mellitus Chauncey Alvarado MD Dec 28, 2016 09:31
[2016-12-28 17:32] LABS: HEMOGLOBIN A1a 1.5 %; HEMOGLOBIN A1b 1.6 %; HEMOGLOBIN Ao 69.7 %; HEMOGLOBIN F 2.3 %; HEMOGLOBIN P3 8.5 %
[2016-12-28 17:37] LABS: BICARBONATE 30.6 MEQ/L (21.0-32.0); POTASSIUM 4.5 MEQ/L (3.5-5.1)
[2016-12-28] MEDS: INSULIN ASPART SUPPLEMENTAL SCALE SQ SCH (20:00)
[2016-12-29] VITALS (17 sets, daily range): BP systolic 135–208; BP diastolic 74–99; PULSE 68–106; RESP 12–26; TEMP 96.9–100.4; O2SAT 97–100
[2016-12-29] MEDS: CHLORHEXIDINE GLUCONATE 2 % 1 PACK (2 CLOTHS)(taper/protocol) TOP SCH (04:00)
[2016-12-29] MEDS: DONEPEZIL HCL 5 MG TAB PO SCH ×2 (06:18→23:04)
[2016-12-29] MEDS: LEVOTHYROXINE SODIUM 75 MCG TAB PO SCH (06:18)
[2016-12-29] MEDS: INSULIN ASPART SUPPLEMENTAL SCALE SQ SCH ×5 (06:22→23:02)
[2016-12-29 07:27] LABS: BICARBONATE 29.5 MEQ/L (21.0-32.0); POTASSIUM 4.4 MEQ/L (3.5-5.1)
[2016-12-29] MEDS ORDERED: SODIUM CHLOR 0.45% 1000 ML INJ 1,000 ML IV SCH (07:45)
--- NOTE | 2016-12-29 08:57 | HHI.PR ---
Subjective Remarks more oriented. wants to go home Objective Vitals heart reg lung cta abd s/nt ext no edema Vital Signs Date Time Temp Pulse Resp B/P Pulse Ox O2 Delivery O2 Flow Rate FiO2 12/29/16 06:00 74 12/29/16 04:00 74 12/29/16 04:00 96.9 74 14 150/87 97 12/29/16 02:00 75 12/29/16 00:00 98.2 68 20 159/88 98 12/29/16 00:00 70 12/28/16 22:00 72 12/28/16 20:00 98.1 66 18 156/85 93 12/28/16 20:00 66 12/28/16 20:00 70 12/28/16 16:00 98.4 67 18 156/91 97 12/28/16 12:00 98.2 72 18 148/81 97 12/28/16 12/28/16 12/29/16 15:00 23:00 07:00 Intake Total 365 ml 580 ml 585 ml Output Total 850 ml 150 ml Balance 365 ml -270 ml 435 ml IV Total 365 ml 580 ml 585 ml Output Urine Total 850 ml 150 ml # Voids 2 # Bowel Movements 0 Result Diagram: 12/27/16 1211 12/29/16 0628 Imaging Last Impressions Chest X-Ray 12/27/16 1209 Signed Impressions: Service Date/Time: Tuesday, December 27, 2016 12:09 - CONCLUSION: No acute disease. No significant change has occurred. Christian Simon MD A/P Problem List: (1) DKA (diabetic ketoacidoses) Status: Acute Plan: - Pt was brought to the ED on 12/27/16 with loss of appetite, weakness and confusion x 2 days. - He has reportedly had poor oral intake and has not taken any of his medications in 2 days. - The patient is reportedly more confused than his baseline. - DKA -SARAI -Dehydration -Hypernatremia -Acute worsening of mental status due to above. off insulin gtt d/c d5w. cont 1/2ns today cont ssi q4hr check today. cont monitor renal function dvt prophylaxis PT eval. transfer to med/surg CM consult to decide with family on snf. (2) SARAI (acute kidney injury) Status: Acute Plan: - See above. - Likely secondary to dehydration - IVF - Monitor labs (3) Dehydration Status: Acute Plan: - See above. (4) Altered mental status Status: Chronic Plan: - Pt with baseline dementia but reportedly more confused than baseline, likely secondary to DKA - Resume Aricept (5) HTN (hypertension) Status: Chronic Plan: - Hole Lisinopril due to SARAI - Clonidine PRN - Monitor (6) Hyperlipidemia Status: Chronic Plan: - Cont. home meds (7) Dementia Status: Chronic Problem Qualifiers (1) DKA (diabetic ketoacidoses): Qualified Code: E13.10 - Diabetic ketoacidosis without coma associated with type 2 diabetes mellitus Chauncey Alvarado MD Dec 29, 2016 08:57
[2016-12-29] MEDS ORDERED: MIDAZOLAM HCL 5 MG/ML VIAL (1 ML) ONE ×2 (10:49→10:50)
[2016-12-29] MEDS ORDERED: ROCURONIUM INJ 50 MG/5 ML VIAL ONE (11:01)
[2016-12-29] MEDS ORDERED: fentaNYL DRIP 250 ML IV SCH (11:15)
[2016-12-29] MEDS ORDERED: SODIUM CHLOR 0.9% 1000 ML INJ 1,000 ML IV SCH (11:30)
--- NOTE | 2016-12-29 11:31 | RADRPT ---
EXAM DATE/TIME: 12/29/2016 11:19 [facility] COMPARISON: CT BRAIN W/O CONTRAST, October 06, 2014, 21:04. INDICATIONS : Stroke alert; became unresponsive. RADIATION DOSE: 39.04 CTDIvol (mGy) This report was called by Dr. Ledbetter to Dr. Farrell at 11: 28 AM MEDICAL HISTORY : Non-responsive. SURGICAL HISTORY : Non-responsive. ENCOUNTER: Initial ACUITY: 1 day PAIN SCALE: Non-responsive LOCATION: cranial TECHNIQUE: Multiple contiguous axial images were obtained of the head. Using automated exposure control and adj ustment of the mA and/or kV according to patient size, radiation dose was kept as low as reasonably a chievable to obtain optimal diagnostic quality images. FINDINGS: CEREBRUM: The ventricles are normal for age. There is bilateral cortical atrophy overlying the frontal lobes. This is stable compared to 2013. No evidence of midline shift, mass lesion, hemorrhage or acute infar ction. No extra-axial fluid collections are seen. POSTERIOR FOSSA: The cerebellum and brainstem are intact. The 4th ventricle is midline. The cerebellopontine angle i s unremarkable. EXTRACRANIAL: The visualized portion of the orbits is intact. SKULL: The calvaria is intact. No evidence of skull fracture. CONCLUSION: 1. Bilateral cortical atrophy. 2. No acute intracranial hemorrhage. 3. Stable exam compared to the prior study from 2013. Mehdi Pope MD on December 29, 2016 at 11:26 Board Certified Radiologist. This report was verified electronically.
--- NOTE | 2016-12-29 11:48 | PD.PROCEDR ---
Procedure Note Procedure After the risks and benefits were discussed the following procedure was performed: INTUBATION: The patient was put in optimal position for the procedure. Rapid sequence intubation was initiated by me using 20 milligrams of etomidate IV and 5 milligrams of Versed IV, NM paralysis with rocuronium 50 mg IV. DL with Mac 4 blade Grade 1 view single attempt. The patient was intubated with a 8 cuffed endotracheal tube. Tube placement was confirmed by visualization of the tube and balloon passing through the cords, capnometry and subsequent chest x-ray. Breath sounds were equal and well aerated bilaterally postintubation. No breath sounds over stomach. Patient tolerated procedure well. Sami Ramos MD Dec 29, 2016 11:48
[2016-12-29] MEDS ORDERED: MISCELLANEOUS NURSING INFORMATION XX SCH (12:15)
[2016-12-29] MEDS ORDERED: SODIUM CHLORIDE 0.9% FLUSH 5 ML FLUSH IV FLUSH PRN (12:15)
[2016-12-29] MEDS ORDERED: SENNOSIDES 8.6 MG TAB PO PRN (12:15)
[2016-12-29] MEDS ORDERED: IODIXANOL 320 MG/ML 50 ML VIAL (for Rad CT) IV ONE (12:15)
[2016-12-29] MEDS ORDERED: RESP: ALBUTEROL 2.5 MG/IPRATROPIUM 0.5 MG NEB (PRN) INH (12:15)
[2016-12-29] MEDS ORDERED: CHLORHEXIDINE GLUCONATE 2 % 1 PACK (2 CLOTHS) TOP PRN (12:15)
[2016-12-29] MEDS ORDERED: ONDANSETRON HCL 4 MG/2 ML VIAL IV PRN (12:15)
[2016-12-29] MEDS ORDERED: ACETAMINOPHEN 325 MG TAB PO PRN (12:15)
--- NOTE | 2016-12-29 12:28 | RADRPT ---
EXAM DATE/TIME: 12/29/2016 11:19 [facility] COMPARISON: No previous studies available for comparison. INDICATIONS : Stroke alert; sudden onset of altered mental status. IV CONTRAST: 50 cc Visipaque (iodixanol) IV ; Cumulative dose for multiple exams. RADIATION DOSE: 28.07 CTDIvol (mGy) ; Combined studies MEDICAL HISTORY : Dementia. Diabetes mellitus type 2. Hypertension. SURGICAL HISTORY : None. ENCOUNTER: Initial ACUITY: 1 day PAIN SCALE: Non-responsive LOCATION: cranial TECHNIQUE: Volumetric scanning was performed using a multi-row detector CT scanner. The data was post processed with a variety of visualization algorithms including full volume maximum intensity projection, multi -planar sliding thin slab reformation, curved planar reformation, and surface rendering techniques. Using automated exposure control and adjustment of the mA and/or kV according to patient size, radiat ion dose was kept as low as reasonably achievable to obtain optimal diagnostic quality images. FINDINGS: There is excellent visualization of the major intracranial arteries out to the second-order branch ve ssels. There is no evidence for aneurysm, vessel truncation or stenosis, and no evidence for vascula r malformation. CONCLUSION: Normal examination. Harish Agrawal Jr., MD on December 29, 2016 at 12:24 Board Certified Radiologist. This report was verified electronically.
--- NOTE | 2016-12-29 12:29 | PD.CONS ---
[facility] Service Critical Care Medicine Consult Requested By Dr. Milian Reason for Consult Acute respiratory failure/unresponsiveness Primary Care Physician Raciel Avila M.D. History of Present Illness This is an 86-year-old [place] male. Date of admission 12/27/2016. Date of consultation 12/29/2016. Past medical history includes dementia disorder , hypothyroidism, dyslipidemia, hypertension, [id number] diabetes mellitus and chronic kidney stage III. Patient was resolved admitted to [facility] for hyperglycemia/HHS. Patient is normally on Amaryl 4 mg daily for his diabetes. Patient is noted to be with acute kidney injury which is slowly normalizing. Baseline creatinine 1.1. Today patient was in normal state of health off insulin drip when with son at bedside unresponsive. Essentially flaccid. Decision made to emergently intubate with 5 mg Versed and 59 g rocuronium. Stroke alert was called in stat CT/CTA head were performed which were negative. Neurology has seen the patient. Currently receiving aspirin 300 mg 1. Will get stat MRI brain. Examination reveals noticeable weakness in the left upper and lower extremity. Following commands right upper and lower extremity currently. Review of Systems ROS Limitations: Intubated Past Family Social History Allergies: Coded Allergies: No Known Allergies (Verified , 12/27/16) Past Medical History Dementia disorder Diabetes mellitus Hypertension Hypothyroidism Dyslipidemia Chronic kidney disease stage III Past Surgical History None documented Reported Medications Amaryl 4 mg by mouth daily Lovastatin 20 mg by mouth daily Lisinopril 10 mg by mouth daily Aricept 10 mg by mouth daily Levoxyl 75 mg by mouth daily Active Ordered Medications Reviewed in EMR Family History Mother and father noncontributory Social History No documented tobacco alcohol or IV drug use Physical Exam Vital Signs Vital Signs Date Time Temp Pulse Resp B/P Pulse Ox O2 Delivery O2 Flow Rate FiO2 12/29/16 11:00 100 100 12/29/16 06:00 74 12/29/16 04:00 74 12/29/16 04:00 96.9 74 14 150/87 97 12/29/16 02:00 75 12/29/16 00:00 98.2 68 20 159/88 98 12/29/16 00:00 70 12/28/16 22:00 72 12/28/16 20:00 98.1 66 18 156/85 93 12/28/16 20:00 66 12/28/16 20:00 70 12/28/16 16:00 98.4 67 18 156/91 97 Physical Exam GENERAL: 86-year-old male, critically ill currently orotracheally intubated SKIN: Warm and dry. HEAD: Atraumatic. Normocephalic. EYES: Pupils equal and round about 2 mm bilaterally and reactive. No scleral icterus. No injection or drainage. ENT: No nasal bleeding or discharge. Mucous membranes pink and moist. NECK: Trachea midline. No JVD. CARDIOVASCULAR: Regular rate and rhythm. S1, S2. No S4. Without murmur RESPIRATORY: Clear to auscultation. Breath sounds equal bilaterally. GASTROINTESTINAL: Abdomen soft, non-tender, nondistended. Hypoactive bowel sounds are appreciated MUSCULOSKELETAL: Extremities without without significant peripheral edema NEUROLOGICAL: Opens eyes to command. Strength 4+ out of 5 left upper and lower extremity. 5 out of 5 in the right upper and lower extremity. Normal sensation light touch. Withdraws to pain. Laboratory Laboratory Tests Test 12/28/16 12/29/16 17:01 06:28 Sodium Level 154 148 Potassium Level 4.5 4.4 Chloride Level 121 113 Carbon Dioxide Level 30.6 29.5 Anion Gap 2 6 Blood Urea Nitrogen 32 27 Creatinine 1.98 1.84 Estimat Glomerular Filtration 39 42 Rate Random Glucose 129 231 Calcium Level 8.2 7.8 Result Diagram: 12/27/16 1211 12/29/16 0628 Imaging Last Impressions Head CT 12/29/16 0000 Signed Impressions: Service Date/Time: Thursday, December 29, 2016 11:19 - CONCLUSION: 1. Bilateral cortical atrophy. 2. No acute intracranial hemorrhage. 3. Stable exam compared to the prior study from 2013. Mehdi Pope MD Chest X-Ray 12/27/16 1209 Signed Impressions: Service Date/Time: Tuesday, December 27, 2016 12:09 - CONCLUSION: No acute disease. No significant change has occurred. Christian Simon MD Assessment and Plan Assessment and Plan Neuro/Psych: Dementia disorder AMS Stat CT/CTA head revealed no acute intracranial findings or vascular findings. Seen stat by neurology. Recommended 3 mg by mouth arrest aspirin on an MRI brain stat. Patient is on Aricept 10 mg by mouth daily for dementia. Continue Neuro checks Currently in propofol/fentanyl drips for sedation/analgesia while intubated Goal of RA SS -2 Daily sedation vacation CV: Hypertension Dyslipidemia Continue Pravachol 20 mg by mouth daily for dyslipidemia. Check lipid panel On lisinopril 10 mg daily at home for hypertension. This be held Allow permissive hypertension with altered mental status. Previously around 160 systolic Continue normal saline at 84 cc an hour Resp: Acute hypoxemic respiratory failure secondary to altered mental status ACV 14/500/1/5/100 Ventilator bundle Bronchodilator therapy every 6 hours and as needed Spontaneous breathing trials daily Follow-up on post intubation chest x-ray GI: Patient is currently nothing by mouth. Protonix for GI prophylaxis Colace/as needed Senokot for bowel regimen OG tube will be placed : Soto will be placed for accurate I's nose any critically ill patient Endo: Diabetes mellitus - AIc 10.3 Hypothyroid Currently on sliding scale insulin/low with Accu checks every 4 hours to maintain euglycemia. Continue levoxyl 75 mcg daily. Check tsh Renal: Acute on chronic kidney injury stage III Baseline creatinine around 1.1. Currently 1.8. Will give Mucomyst 20% 3 cc every 12 hours 4 dosages. Continue gentle hydration. Accurate I's and O's Monitor urine output Heme: Macrocytosis Thrombocytopenia Recheck CBC and coags post altered mental status. Results currently pending. ID: Monitor for infection FEN: Hypernatremia Replace electrodes as clinically indicated. Hypernatremia likely secondary to dehydration upon admission. We'll follow trends. MSK: PT evaluate and treat Access - Utilize peripheral IV. Central line if indicated Prophylaxis - GI - Protonix - DVT - SCD/heparin subcutaneous Critical Care: The total critical care time was 55 minutes. Time to perform other separately billable procedures was not included in the critical care time. Code Status Full code Discussed Condition With Dr. Farrell. Neurology and patient's daughter. Care plan discussed and all questions answered. Tate House MD Dec 29, 2016 12:29
[2016-12-29] MEDS ORDERED: ACETYLCYSTEINE 20% ORAL SOLN 4 ML VIAL PO SCH (12:30)
[2016-12-29 12:54] LABS: BLOOD GAS BASE EXCESS -6.7 mmol/L (-2-2); BLOOD GAS CARBOXYHEMOGLOBIN 0.6 % (0-4); BLOOD GAS HCO3 18 mmol/L (22-26); BLOOD GAS METHEMOGLOBIN 1.6 % (0-2); BLOOD GAS O2 HGB SATURATION 95 % (90-100); BLOOD GAS OXYGEN CONTENT 17.1 Vol % (12.0-20.0); BLOOD GAS PCO2 32 mmHg (38-42); BLOOD GAS PO2 108 mmHg (61-120); BLOOD GAS TOTAL HGB 12.7 G/DL (12.0-16.0); CRITICAL VALUE NO; OXYGEN DEVICE VENTILATOR; TEMP CORR TO 98.6
[2016-12-29 12:55] LABS: DRAW SITE RT RADIAL; FIO2 50 %; NUMBER OF ARTERIAL PUNCTURES 1; STAT NO; ULNAR PULSE PRESENT; VENT SETTINGS A/C 500/16/5PEEP
[2016-12-29] MEDS: ARTIFICIAL TEARS OPTH SOLN 15 ML BTL EACH EYE SCH ×2 (13:00→18:00)
[2016-12-29] MEDS: ASPIRIN 300 MG SUPP RECTAL SCH (13:00)
--- NOTE | 2016-12-29 13:19 | RADRPT ---
EXAM DATE/TIME: 12/29/2016 12:31 [facility] COMPARISON: CHEST SINGLE AP, December 27, 2016, 12:09. INDICATIONS : Evaluate heart and lungs post intubation for placement. MEDICAL HISTORY : Stroke. SURGICAL HISTORY : None. ENCOUNTER: Subsequent ACUITY: 2 days PAIN SCORE: Non-responsive. LOCATION: chest FINDINGS: A single view of the chest demonstrates the lungs to be symmetrically aerated without evidence of mas s, infiltrate or effusion. The ET tube appears to be in good position with the tip at the thoracic ao rtic arch level. There is no evidence of pneumothorax. The cardiomediastinal contours are unremarkabl e. Osseous structures are intact. CONCLUSION: ET tube in good position. No pneumothorax. Mehdi Pope MD on December 29, 2016 at 13:17 Board Certified Radiologist. This report was verified electronically.
--- NOTE | 2016-12-29 13:24 | RADRPT ---
EXAM DATE/TIME: 12/29/2016 11:19 [facility] COMPARISON: No previous studies available for comparison. INDICATIONS : Stroke alert; sudden onset of altered mental status. IV CONTRAST: 50 cc Visipaque (iodixanol) IV ; Cumulative dose for multiple exams. RADIATION DOSE: 28.07 CTDIvol (mGy) ; Combined studies MEDICAL HISTORY : Dementia. Diabetes mellitus type 2. Hypertension. SURGICAL HISTORY : None. ENCOUNTER: Initial ACUITY: 1 day PAIN SCALE: Non-responsive LOCATION: neck TECHNIQUE: Volumetric scanning was performed using a multirow detector CT scanner. The data was post processed with a variety of visualization algorithms including full-volume maximum intensity projection, multip lanar sliding thin-slab reformation, curved-planar reformation, and surface-rendering techniques. Us ing automated exposure control and adjustment of the mA and/or kV according to patient size, radiatio n dose was kept as low as reasonably achievable to obtain optimal diagnostic quality images. FINDINGS: Exam is motion degraded but still felt to be diagnostic. AORTIC ARCH: There is a three-vessel origin of the great vessels from the aorta. No evidence of ostial narrowing. RIGHT CAROTID: The common carotid artery is intact. The carotid bulb has a normal configuration without ulceration o r narrowing. The internal carotid artery lumen is smooth without stenosis. The external carotid galen ry is intact. LEFT CAROTID: The common carotid artery is intact. The carotid bulb has a normal configuration without ulceration or narrowing. The internal carotid artery lumen is smooth without stenosis. The external carotid ar andi is intact. VERTEBRALS: The left vertebral artery is dominant. No stenotic lesions are seen. Numerous venous collaterals about the left shoulder and neck with suspected stenosis of the brachioce phalic vein. Endotracheal tube observed with the tip just cephalad to the monica. Fluid is seen withi n a mildly distended thoracic esophagus. A calcified granuloma is seen within the right upper lobe. CONCLUSION: 1. Patent carotid arteries and vertebral arteries. The left vertebral is dominant. 2. 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 Harish Agrawal Jr., MD on December 29, 2016 at 13:18 Board Certified Radiologist. This report was verified electronically.
--- NOTE | 2016-12-29 13:40 | MB ---
cc: AMANDA AYALA M.D. DATE OF CONSULTATION: 12/29/2016 DATE OF : 1930 REASON FOR CONSULTATION Stroke Alert. HISTORY OF PRESENT ILLNESS The patient is an 86-year-old man admitted to the hospital with DKA, acute kidney insufficiency, history of diabetes, noncompliance, history of DKA, dementia, chronic kidney disease, hypertension, hyperlipidemia, hypothyroidism, who comes into the ED with loss of appetite, confusion, weakness, admitted to the ICU for evaluation. Today they got him up sitting in a chair and suddenly he slumped over, was sent down for CAT scan of the brain which was unremarkable for any acute findings. He had a head CTA and the verbal report was unremarkable. No major territorial infarct. Prior to intubation the patient was hypotensive I believe. NEUROLOGIC EXAMINATION Currently his blood pressure is 139/76 satting at 99%, heart rate 96. He is intubated on the ventilator now. His pupils are pinpoint. There is no gaze deviation. It is difficult to tell if the face is symmetrical. He did follow commands with his right arm and right leg, but did not on the left. His right toe is downgoing. His left toe is neutral. Reflexes are 1-2+. Gait and cerebellar cannot be assessed. LABORATORY His labs are reviewed. His sodium today was 148, BUN 27, creatinine 1.84, GFR 42. His glucose 231. His hemoglobin A1c is 10.3. He came in originally with a glucose of 876 lip a GFR of 14. His beta hydroxybutyrate was 4.46 currently is 0.12. The ED with and IMPRESSION An 86-year-old man status post possible stroke with some left-sided weakness. So far workup has been negative. PLAN/RECOMMENDATIONS I will place him on a rectal aspirin daily, 300 mg. Will get an MRI of the brain. It is still not clear if the patient had a true stroke or not. I am going to get an EEG as well. He may have had a seizure and have Óscar's paralysis as well. TPA will not be given due to the nature of the event. There is no major occlusion seen and no abnormalities on CT, but I will go ahead and get an MRI as well as an EEG. Will maintain current treatment. Will put him on a proton pump inhibitor as well as subcu either Lovenox or heparin for DVT prophylaxis, SCDs as well. Further recommendations will be made accordingly. MD KAI Bruner/JONEL /12:32 PM /1:31 PM
[2016-12-29 13:53] LABS: AUTOMATED NEUTROPHIL # 4.7 TH/MM3 (1.8-7.7); BASOPHIL % 0.4 % (0.0-2.0); EOSINOPHIL % 0.5 % (0.0-4.0); HEMATOCRIT 42.7 % (39.0-51.0); LYMPH % 23.8 % (9.0-44.0); LYMPHOCYTE # 1.6 TH/MM3 (1.0-4.8); MEAN CORPUSCULAR HEMOGLOBIN 30.5 PG (27.0-34.0); MEAN CORPUSCULAR HGB CONC 31.5 % (32.0-36.0); MONO % 4.6 % (0.0-8.0); NEUT % 70.7 % (16.0-70.0); PLATELET COUNT 81 TH/MM3 (150-450); RED BLOOD COUNT 4.41 MIL/MM3 (4.50-5.90); WHITE BLOOD COUNT 6.6 TH/MM3 (4.0-11.0)
[2016-12-29 13:56] LABS: HEMO FLAGS AUTO DIFF
[2016-12-29 14:01] LABS: APTT (PATIENT) 23.3 SEC (24.3-30.1); INTERNATIONAL NORMALIZED RATIO 1.1 RATIO; PROTHROMBIN TIME - PATIENT 12.1 SEC (9.8-11.6)
[2016-12-29 14:16] LABS: ALKALINE PHOSPHATASE 62 U/L (45-117); ALT (GPT) 27 U/L (12-78); ANION GAP 13 MEQ/L (5-15); AST (GOT) 46 U/L (15-37); BICARBONATE 20.5 MEQ/L (21.0-32.0); BLOOD UREA NITROGEN 26 MG/DL (7-18); CHLORIDE 112 MEQ/L (98-107); CREATINE KINASE 781 U/L (39-308); GLOMERULAR FILTRATION RATE 37 ML/MIN (>89); POTASSIUM 3.8 MEQ/L (3.5-5.1); SODIUM (NA) 145 MEQ/L (136-145); TOTAL BILIRUBIN ADULT 1.2 MG/DL (0.2-1.0)
[2016-12-29 14:21] LABS: ACANTHOCYTES OCC (NORMAL); PLATELET ESTIMATE SMEAR LOW (NORMAL); PLATELET MORPHOLOGY NORMAL (NORMAL); SCAN/DIFF AUTO DIFF CONFIRMED
[2016-12-29 15:16] LABS: CKMB 4.4 NG/ML (0.5-3.6)
[2016-12-29] MEDS: SODIUM CHLOR 0.9% 1000 ML INJ 1,000 ML IV SCH (15:22)
[2016-12-29] MEDS: RESP: ALBUTEROL 2.5 MG/IPRATROPIUM 0.5 MG NEB (SCH) INH ×2 (15:52→21:23)
--- NOTE | 2016-12-29 16:10 | MG ---
cc: AMANDA AYALA M.D. Lab No: [id number] Date: 86 Age: Sex: M Race: REFERRING: ROOM: [facility]. With photic stimulation. An 86-year-old man who was a stroke alert found slumped over in the chair post CT comes back to the room. He has some left-sided weakness with questionable stroke versus seizure. CT shows atrophy. Admitted with diabetic ketoacidosis. History of dementia and diabetes and hypothyroidism. MEDICATIONS: On Aricept, Pravachol, Synthroid, insulin, Protonix. DESCRIPTION OF RECORD: Some background slowing predominately of theta frequency 6 Hz. There is some right foot tremor that does not correlate with any epileptic activity. Photic stimulation with minimal driving response seen. IMPRESSION: Abnormal EEG due to some mild slowing consistent with encephalopathic process. No evidence of any epileptic activity in this one recording. MD KAI Bruner/BRAD /3:51 PM /4:01 PM
[2016-12-29] MEDS: PROPOFOL 1000 MG/100 ML INJ 100 ML IV SCH ×2 (16:16→23:01)
[2016-12-29] MEDS: ACETYLCYSTEINE 20% 6,000 MG/30 ML ORAL SOLN VIAL PO SCH ×2 (16:38→23:05)
--- NOTE | 2016-12-29 19:46 | RADRPT ---
EXAM DATE/TIME: 12/29/2016 18:10 [facility] COMPARISON: No previous studies available for comparison. INDICATIONS : Cerebrovascular accident. MEDICAL HISTORY : Cerebrovascular disease. Hypercholesterolemia. Hypertension. Thyroid disease. Dementia. Diabetes. Ch ronic kidney disease. Diabetic ketoacidoses. SURGICAL HISTORY : Circumcision. ENCOUNTER: Initial ACUITY: 1 day PAIN SCORE: Nonresponsive. LOCATION: Bilateral neck PEAK SYSTOLIC VELOCITIES (cm/sec): ICA/CCA RATIO: Right: 1.0 Left: 1.1 ICA: Right: 68 Left: 77 CCA: Right: 70 Left: 71 ECA: Right: 63 Left: 63 VERTEBRAL: Right: 56 antegrade Left: 74 antegrade Elevated flow velocities and ICA/CCA ratios have been found to correlate with increased degrees of vessel stenosis, calculated as percentage of diameter relative to a normal segment of distal ICA/CCA FINDINGS: RIGHT CAROTID: There is mild plaque in the bulb and proximal internal carotid artery. LEFT CAROTID: There is moderate plaque of the bulb and proximal internal carotid artery with kelley scale showing 50% or less narrowing. VERTEBRAL ARTERIES: Antegrade flow is seen in both vertebral arteries. MISCELLANEOUS: None. CONCLUSION: Atherosclerotic plaque of both carotid bifurcations, mild on the right and moderate on the left. No h emodynamically significant narrowing on either side. Richard Hauser MD on December 29, 2016 at 19:43 Board Certified Radiologist. This report was verified electronically.
[2016-12-29] MEDS: CHLORHEXIDINE 0.12% (ORAL KIT) 15 ML CUP MT SCH (20:00)
[2016-12-29] MEDS ORDERED: CHLORHEXIDINE 0.12% (ORAL KIT) 15 ML CUP MT SCH (20:00)
[2016-12-29 20:07] LABS: CKMB 3.3 NG/ML (0.5-3.6)
--- NOTE | 2016-12-29 21:27 | EKG ---
Date Performed: 12/29/2016 Time Performed: 13:09:30 PTAGE: 86 years EKG: SINUS TACHYCARDIA POSSIBLE RIGHT ATRIAL ENLARGEMENT LEFT AXIS DEVIATION RIGHT BUNDLE BRANCH BLOCK ABNORMAL ECG PREVIOUS TRACING : 12/27/2016 11.22 No significant change from previous tracing noted. DOCTOR: Grant Dimas Interpretating Date/Time 12/29/2016 21:25:29
[2016-12-29] MEDS: DOCUSATE SODIUM 100 MG CAP PO SCH (23:05)
[2016-12-30] VITALS (19 sets, daily range): BP systolic 75–130; BP diastolic 53–76; PULSE 76–110; RESP 16–21; TEMP 99–102.2; O2SAT 95–100
[2016-12-30] MEDS: INSULIN ASPART SUPPLEMENTAL SCALE SQ SCH ×6 (00:09→21:31)
[2016-12-30] MEDS ORDERED: ACETAMINOPHEN 325 MG TAB PO PRN (00:45)
[2016-12-30 01:35] LABS: CKMB 1.2 NG/ML (0.5-3.6)
[2016-12-30 01:41] LABS: BLOOD, URINE NEG (NEG); COMMENT (UR) CULT NOT INDICATED; CULTURE IF INDICATED CULT NOT INDICATED; GLUCOSE,URINE 1000 mg/dL (NEG); KETONE, URINE 10 mg/dL (NEG); MUCUS URINE FEW /lpf (OCC); NITRITE,URINE NEG (NEG); PH, URINE 5.5 (5.0-8.5); SQUAMOUS EPITHELIAL CELL URINE <1 /hpf (0-5); URINE COLOR YELLOW (YELLW/STRAW)
[2016-12-30] MEDS: RESP: ALBUTEROL 2.5 MG/IPRATROPIUM 0.5 MG NEB (SCH) INH ×4 (03:25→20:58)
[2016-12-30] MEDS: CHLORHEXIDINE GLUCONATE 2 % 1 PACK (2 CLOTHS) TOP SCH (04:00)
--- NOTE | 2016-12-30 04:38 | RADRPT ---
EXAM DATE/TIME: 12/30/2016 03:30 [facility] COMPARISON: CHEST SINGLE AP, December 29, 2016, 12:31. INDICATIONS : Shortness of breath, possible pulmonary disease. MEDICAL HISTORY : Stroke. SURGICAL HISTORY : None. ENCOUNTER: Subsequent ACUITY: 3 days PAIN SCORE: Non-responsive. LOCATION: Bilateral chest FINDINGS: Endotracheal tube and NG tube are noted. The lungs are clear. EKG leads overlie the chest. CONCLUSION: No acute disease. Matt Morrow MD on December 30, 2016 at 4:36 Board Certified Radiologist. This report was verified electronically.
[2016-12-30 05:27] LABS: ALKALINE PHOSPHATASE 54 U/L (45-117); ALT (GPT) 24 U/L (12-78); ANION GAP 10 MEQ/L (5-15); AST (GOT) 36 U/L (15-37); BICARBONATE 22.6 MEQ/L (21.0-32.0); BLOOD UREA NITROGEN 30 MG/DL (7-18); CHLORIDE 116 MEQ/L (98-107); GLOMERULAR FILTRATION RATE 37 ML/MIN (>89); MAGNESIUM 1.8 MG/DL (1.5-2.5); POTASSIUM 4.7 MEQ/L (3.5-5.1); SODIUM (NA) 149 MEQ/L (136-145); TOTAL BILIRUBIN ADULT 0.7 MG/DL (0.2-1.0)
[2016-12-30 07:33] LABS: INTERNATIONAL NORMALIZED RATIO 1.1 RATIO; PROTHROMBIN TIME - PATIENT 12.4 SEC (9.8-11.6)
[2016-12-30] MEDS: DOCUSATE SODIUM 100 MG CAP PO SCH ×2 (08:28→21:00)
[2016-12-30] MEDS: PRAVASTATIN SOD 20 MG TAB PO SCH (08:28)
[2016-12-30] MEDS: PANTOPRAZOLE SODIUM 40 MG VIAL IV SCH (08:28)
[2016-12-30] MEDS: ACETYLCYSTEINE 20% 6,000 MG/30 ML ORAL SOLN VIAL PO SCH ×2 (08:28→21:00)
[2016-12-30] MEDS: ASPIRIN 300 MG SUPP RECTAL SCH (08:29)
[2016-12-30] MEDS: ARTIFICIAL TEARS OPTH SOLN 15 ML BTL EACH EYE SCH ×3 (08:32→17:34)
[2016-12-30 09:13] LABS: AUTOMATED NEUTROPHIL # 5.4 TH/MM3 (1.8-7.7); BASOPHIL % 0.2 % (0.0-2.0); EOSINOPHIL % 0.1 % (0.0-4.0); HEMATOCRIT 38.8 % (39.0-51.0); LYMPH % 26.5 % (9.0-44.0); LYMPHOCYTE # 2.2 TH/MM3 (1.0-4.8); MEAN CELL VOLUME 94.8 FL (80.0-100.0); MEAN CORPUSCULAR HEMOGLOBIN 30.8 PG (27.0-34.0); MEAN CORPUSCULAR HGB CONC 32.5 % (32.0-36.0); MONO % 7.5 % (0.0-8.0); NEUT % 65.7 % (16.0-70.0); PLATELET COUNT 57 TH/MM3 (150-450); RED BLOOD COUNT 4.09 MIL/MM3 (4.50-5.90); RED CELL DISTRIBUTION WIDTH 13.5 % (11.6-17.2); WHITE BLOOD COUNT 8.3 TH/MM3 (4.0-11.0)
[2016-12-30 09:19] LABS: HEMO FLAGS AUTO DIFF
[2016-12-30] MEDS: PROPOFOL 1000 MG/100 ML INJ 100 ML IV SCH (10:06)
[2016-12-30] MEDS: SODIUM CHLOR 0.9% 1000 ML INJ 1,000 ML IV SCH (10:07)
--- NOTE | 2016-12-30 12:53 | RADRPT ---
EXAM DATE/TIME: 12/30/2016 11:19 [facility] COMPARISON: No previous studies available for comparison. INDICATIONS : Stroke alert. Found unresponsive. MEDICAL HISTORY : Diabetes mellitus type 2. Renal insufficiency, chronic. Hypothyroidism. SURGICAL HISTORY : None. ENCOUNTER: Subsequent ACUITY: 3 day PAIN SCORE: 0/10 LOCATION: cranial TECHNIQUE: Multiplanar, multisequence MRI of the brain was performed without contrast. FINDINGS: CEREBRUM: The ventricles are normal for age. No evidence of midline shift, mass lesion, hemorrhage or acute in farction. No extraaxial fluid collections are seen. The pituitary gland and suprasellar cistern are normal in configuration. WHITE MATTER: No significant signal abnormalities are seen in the white matter. POSTERIOR FOSSA: The cerebellum and brainstem are intact. The 4th ventricle is midline. The cerebellopontine angle is unremarkable. The cerebellar tonsils are normal in position. DIFFUSION IMAGING: No focal areas of restricted diffusion are seen. No evidence of acute infarction. EXTRACRANIAL: The visualized portions of the orbits and paranasal sinuses are unremarkable. CONCLUSION: Brain MRI within normal limits. Lavelle Anaya MD on December 30, 2016 at 12:51 Board Certified Radiologist. This report was verified electronically.
--- NOTE | 2016-12-30 13:33 | HHI.CCPN ---
Subjective Remarks/Hospital Course This is an 86-year-old [place] male. Date of admission 12/27/2016. Date of consultation 12/29/2016. Past medical history includes dementia disorder , hypothyroidism, dyslipidemia, hypertension, eyf-cmfrhxm-zdnjorhbo diabetes mellitus and chronic kidney stage III. Patient was resolved admitted to [facility] for hyperglycemia/HHS. Patient is normally on Amaryl 4 mg daily for his diabetes. Patient is noted to be with acute kidney injury which is slowly normalizing. Baseline creatinine 1.1. Today patient was in normal state of health off insulin drip when with son at bedside unresponsive. Essentially flaccid. Decision made to emergently intubate with 5 mg Versed and 59 g rocuronium. Stroke alert was called in stat CT/CTA head were performed which were negative. Neurology has seen the patient. Currently receiving aspirin 300 mg 1. Will get stat MRI brain. Examination reveals noticeable weakness in the left upper and lower extremity. Following commands right upper and lower extremity currently. Subjective 12/30: Tmax 102.2. Currently afebrile. MRI brain within normal limits. Noted bilateral carotid plaques right greater than left not significant hemodynamically. Objective Vital Signs Date Time Temp Pulse Resp B/P Pulse Ox O2 Delivery O2 Flow Rate FiO2 12/30/16 12:51 95 95 12/30/16 12:00 99.4 110 19 130/55 12/27/16 20:00 Nasal Cannula 2 Intake and Output 12/29/16 12/29/16 12/30/16 08:00 16:00 00:00 Intake Total 585 ml 1560 ml 741 ml Output Total 150 ml 1850 ml 250 ml Balance 435 ml -290 ml 491 ml Result Diagram: 12/30/16 0835 12/30/16 0400 Other Results Microbiology Date/Time Procedure Status Source Growth 12/30/16 02:05 Aerobic Blood Culture Received Blood Peripheral Pending 12/30/16 02:05 Anaerobic Blood Culture Received Blood Peripheral Pending 12/30/16 00:50 Urine Culture Received Urine Catheterized Urine Pending 12/30/16 00:50 Gram Stain - Final Resulted Sputum Endotracheal 12/30/16 00:50 Sputum Culture Resulted Sputum Endotracheal Pending 12/29/16 13:35 Aerobic Blood Culture - Preliminary Resulted Blood Peripheral NO GROWTH IN 1 DAY 12/29/16 13:35 Anaerobic Blood Culture - Preliminary Resulted Blood Peripheral NO GROWTH IN 1 DAY Imaging Last Impressions Chest X-Ray 12/30/16 0000 Signed Impressions: Service Date/Time: Friday, December 30, 2016 03:30 - CONCLUSION: No acute disease. Matt Morrow MD Brain MRI 12/30/16 0000 Signed Impressions: Service Date/Time: Friday, December 30, 2016 11:19 - CONCLUSION: Brain MRI within normal limits. Lavelle Anaya MD Neck CTA 12/29/16 0000 Signed Impressions: Service Date/Time: Thursday, December 29, 2016 11:19 - CONCLUSION: 1. Patent carotid arteries and vertebral arteries. The left vertebral is dominant. 2. 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 Harish Agrawal Jr., MD Head CTA 12/29/16 0000 Signed Impressions: Service Date/Time: Thursday, December 29, 2016 11:19 - CONCLUSION: Normal examination. Harish Agrawal Jr., MD Head CT 12/29/16 0000 Signed Impressions: Service Date/Time: Thursday, December 29, 2016 11:19 - CONCLUSION: 1. Bilateral cortical atrophy. 2. No acute intracranial hemorrhage. 3. Stable exam compared to the prior study from 2013. Mehdi Pope MD Carotid Artery Ultrasound 12/29/16 0000 Signed Impressions: Service Date/Time: Thursday, December 29, 2016 18:10 - CONCLUSION: Atherosclerotic plaque of both carotid bifurcations, mild on the right and moderate on the left. No hemodynamically significant narrowing on either side. Richard Hauser MD Objective Remarks GENERAL: 86-year-old male, critically ill currently orotracheally intubated SKIN: Warm and dry. HEAD: Atraumatic. Normocephalic. EYES: Pupils equal and round about 2 mm bilaterally and reactive. No scleral icterus. No injection or drainage. ENT: No nasal bleeding or discharge. Mucous membranes pink and moist. NECK: Trachea midline. No JVD. CARDIOVASCULAR: Regular rate and rhythm. S1, S2. No S4. Without murmur RESPIRATORY: Clear to auscultation. Breath sounds equal bilaterally. GASTROINTESTINAL: Abdomen soft, non-tender, nondistended. Hypoactive bowel sounds are appreciated MUSCULOSKELETAL: Extremities without without significant peripheral edema NEUROLOGICAL: Opens eyes to command. Strength 4+ out of 5 left upper and lower extremity. 5 out of 5 in the right upper and lower extremity. Normal sensation light touch. Withdraws to pain. A/P Assessment and Plan Neuro/Psych: Dementia disorder AMS Stat CT/CTA head revealed no acute intracranial findings or vascular findings. Seen stat by neurology. MRI brain negative Current aspirin 3 mg by mouth daily Patient is on Aricept 10 mg by mouth daily for dementia. Continue Neuro checks Currently in propofol/fentanyl drips for sedation/analgesia while intubated Goal of RA SS -2 Daily sedation vacation CV: Hypertension Dyslipidemia Continue Pravachol 20 mg by mouth daily for dyslipidemia. Check lipid panel On lisinopril 10 mg daily at home for hypertension. This be held in light of acute kidney injury Allow permissive hypertension with altered mental status. Previously around 160 systolic Continue normal saline at 84 cc an hour Resp: Acute hypoxemic respiratory failure secondary to altered mental status ACV 14/500/11/09/45 - currently on CPAP Ventilator bundle Bronchodilator therapy every 6 hours and as needed Spontaneous breathing trials daily Follow-up on post intubation chest x-ray GI: Continue Nepro code 50 Protonix for GI prophylaxis Colace/as needed Senokot for bowel regimen OG tube will be placed : Soto will be placed for accurate I's nose any critically ill patient Endo: Diabetes mellitus - AIc 10.3 Hypothyroid Currently on sliding scale insulin/low with Accu checks every 4 hours to maintain euglycemia. Continue levoxyl 75 mcg daily. TSH within normal limits Renal: Acute on chronic kidney injury stage III Baseline creatinine around 1.1. Currently 2.1 Will give Mucomyst 20% 3 cc every 12 hours 4 dosages. Continue gentle hydration. Accurate I's and O's Monitor urine output Heme: Macrocytosis Thrombocytopenia Recheck CBC and coags post altered mental status. Results currently pending. ID: Monitor for infection FEN: Hypernatremia Replace electrodes as clinically indicated. Hypernatremia likely secondary to dehydration upon admission. We'll follow trends. Switch IV fluids to half-normal saline MSK: PT evaluate and treat Access - Utilize peripheral IV. Central line if indicated Prophylaxis - GI - Protonix - DVT - SCD/heparin subcutaneous Critical Care: The total care time was 35 minutes. Time to perform other separately billable procedures was not included in the critical care time. Tate House MD Dec 30, 2016 13:33
[2016-12-30] MEDS: SODIUM CHLOR 0.45% 1000 ML INJ 1,000 ML IV SCH ×2 (14:00→21:32)
[2016-12-30 14:09] LABS: PLATELET ESTIMATE SMEAR LOW (NORMAL); PLATELET MORPHOLOGY NORMAL (NORMAL)
[2016-12-30 14:10] LABS: SCAN/DIFF AUTO DIFF CONFIRMED
[2016-12-30] MEDS: CHLORHEXIDINE 0.12% (ORAL KIT) 15 ML CUP MT SCH (20:00)
[2016-12-30] MEDS: SODIUM CHLORIDE 0.9% FLUSH 5 ML FLUSH IV FLUSH SCH ×2 (21:00→21:33)
[2016-12-30] MEDS: DONEPEZIL HCL 5 MG TAB PO SCH (21:00)
--- NOTE | 2016-12-30 21:00 | EC ---
Study Study Date:12/30/2016 STUDY CONCLUSIONS SUMMARY - Procedure narrative: Transthoracic echocardiography. Image quality was fair. Scanning was performed from the parasternal, apical, and subcostal acoustic windows. - Left ventricle: The cavity size was normal. Wall thickness was normal. Systolic function was normal. The estimated ejection fraction was in the range of 55% to 60%. Although no diagnostic regional wall motion abnormality was identified, this possibility cannot be completely excluded on the basis of this study. - Aortic root: The aortic root was mildly dilated. - Tricuspid valve: Trace regurgitation. - Pulmonary arteries: PA peak pressure: 42mm Hg (S). If LV function is below 40, please consider prescribing an ACEI or ARB or document rationale for non-use. PROCEDURE DATA STUDY STATUS: Elective. Procedure: Transthoracic echocardiography. Image quality was fair. Scanning was performed from the parasternal, apical, and subcostal acoustic windows. Study completion: The patient tolerated the procedure well. Transthoracic echocardiography. M-mode, complete 2D, complete spectral Doppler, and color Doppler. Height: Height: 70in. Weight: Weight: 127.7lb. Body mass index: BMI: 18.4kg/m^2. Body surface area: BSA: 1.73m^2. Patient status: Inpatient. CARDIAC ANATOMY LEFT VENTRICLE: The cavity size was normal. Wall thickness was normal. Systolic function was normal. The estimated ejection fraction was in the range of 55% to 60%. Although no diagnostic regional wall motion abnormality was identified, this possibility cannot be completely excluded on the basis of this study. AORTIC VALVE: Trileaflet; normal thickness leaflets. Doppler: Transvalvular velocity was within the normal range. There was no stenosis. No regurgitation. Valve area: 1.58cm^2(VTI). Indexed valve area: 0.91cm^2/m^2 (VTI). Valve area: 1.36cm^2 (Vmax). Indexed valve area: 0.79cm^2/m^2 (Vmax). Mean gradient: 5mm Hg (S). AORTA: Aortic root: The aortic root was mildly dilated. MITRAL VALVE: Structurally normal valve. Doppler: Transvalvular velocity was within the normal range. There was no evidence for stenosis. No regurgitation. LEFT ATRIUM: The atrium was normal in size. RIGHT VENTRICLE: The cavity size was normal. Wall thickness was normal. PULMONIC VALVE: Doppler: Transvalvular velocity was within the normal range. There was no evidence for stenosis. No regurgitation. TRICUSPID VALVE: Structurally normal valve. Doppler: Transvalvular velocity was within the normal range. Trace regurgitation. PULMONARY ARTERY: The main pulmonary artery was normal-sized. Systolic pressure was within the normal range. RIGHT ATRIUM: The atrium was normal in size. PERICARDIUM: There was no pericardial effusion. SYSTEMIC VEINS: Inferior vena cava: The vessel was normal in size. Patient weight: 127.7lb _Ejection fraction:_ 65-75% _Fractional shortening:_ 32% up to 5Kg 5-11.5Kg 11.6-22.9Kg 23-45Kg 45-57Kg Aortic Root 7-13 <17 13-22 17-27 17-27 LA diam 6-13 <23 24-38 33-47 37-40 RVID 10-17 7-15 7-15 7-18 8-17 LVIDd 12-22 <32 24-38 33-47 37-40 LVPW 2-4 3-6 5-7 6-8 7-8 IVS 2-4 3-6 5-7 6-8 7-8 BASIC MEASUREMENTS ADULT NORMAL Left ventricle LV internal dimension, ED, chordal *34.2 mm 43-52 level, PLAX LV internal dimension, ES, chordal *18.9 mm 23-38 level, PLAX Fractional shortening, chordal level, 45 % >29 PLAX LV posterior wall thickness, ED 9.35 mm IVS/LVPW ratio, ED 1 <1.3 Ventricular septum Septal thickness, ED 9.36 mm Aortic valve Leaflet separation 20 mm 15-26 Aorta Root diameter, ED 33 mm Left atrium Anterior-posterior dimension 16 mm Anterior-posterior dimension index 0.92 cm/m^2 <2.2 BASIC MEASUREMENTS ADULT NORMAL Aortic valve Leaflet separation 20 mm 15-26 DOPPLER MEASUREMENTS ADULT NORMAL Main pulmonary artery Pressure, S *42 mm Hg =30 Aortic valve Peak velocity, S 153 cm/s Mean velocity, S 106 cm/s VTI, S 19.2 cm Mean gradient, S 5 mm Hg Valve area, VTI 1.58 cm^2 Valve area index, VTI 0.91 cm^2/m^2 Valve area, Vmax 1.36 cm^2 Valve area index, Vmax 0.79 cm^2/m^2 Mitral valve Peak E-wave velocity 63.8 cm/s Peak A-wave velocity 120 cm/s Deceleration time *88 ms 150-230 Peak E/A ratio 0.5 Tricuspid valve Regurgitant peak velocity 299 cm/s Peak RV-RA gradient, S 36 mm Hg Maximal regurgitant velocity 299 cm/s Systemic veins Estimated CVP 10 mm Hg Right ventricle RV pressure, S *46 mm Hg <30 Pulmonic valve Peak velocity, S 100 cm/s LEGEND: Mean values are shown as u=mean value. Asterisk (*) nguyen values outside specified normal range. Prepared and signed by Grant Dimas [id number]
[2016-12-30] MEDS ORDERED: ZOLPIDEM TARTRATE 10 MG TAB PO PRN (21:30)
[2016-12-31] VITALS (14 sets, daily range): BP systolic 89–136; BP diastolic 46–63; PULSE 85–101; RESP 16–20; TEMP 99.8–101.2; O2SAT 96–100
[2016-12-31] MEDS: RESP: ALBUTEROL 2.5 MG/IPRATROPIUM 0.5 MG NEB (SCH) INH ×4 (03:25→22:32)
[2016-12-31] MEDS: INSULIN ASPART SUPPLEMENTAL SCALE SQ SCH ×6 (04:00→22:14)
[2016-12-31] MEDS: CHLORHEXIDINE GLUCONATE 2 % 1 PACK (2 CLOTHS) TOP SCH ×2 (04:00→22:16)
[2016-12-31] MEDS: LEVOTHYROXINE SODIUM 75 MCG TAB PO SCH (05:11)
[2016-12-31 07:44] LABS: AUTOMATED NEUTROPHIL # 4.3 TH/MM3 (1.8-7.7); BASOPHIL % 0.1 % (0.0-2.0); EOSINOPHIL % 0.1 % (0.0-4.0); HEMATOCRIT 30.9 % (39.0-51.0); LYMPH % 21.3 % (9.0-44.0); LYMPHOCYTE # 1.3 TH/MM3 (1.0-4.8); MEAN CELL VOLUME 93.5 FL (80.0-100.0); MEAN CORPUSCULAR HEMOGLOBIN 30.4 PG (27.0-34.0); MEAN CORPUSCULAR HGB CONC 32.5 % (32.0-36.0); MONO % 5.6 % (0.0-8.0); NEUT % 72.9 % (16.0-70.0); PLATELET COUNT 54 TH/MM3 (150-450); RED CELL DISTRIBUTION WIDTH 13.5 % (11.6-17.2); WHITE BLOOD COUNT 5.9 TH/MM3 (4.0-11.0)
[2016-12-31 08:06] LABS: HEMO FLAGS AUTO DIFF
[2016-12-31 08:07] LABS: BICARBONATE 19.4 MEQ/L (21.0-32.0); MAGNESIUM 1.7 MG/DL (1.5-2.5); POTASSIUM 4.1 MEQ/L (3.5-5.1)
[2016-12-31] MEDS ORDERED: GLYCERIN ADULT 2 GM SUPP RECTAL PRN (08:30)
--- NOTE | 2016-12-31 08:35 | HHI.CCPN ---
Subjective Remarks/Hospital Course This is an 86-year-old [place] male. Date of admission 12/27/2016. Date of consultation 12/29/2016. Past medical history includes dementia disorder , hypothyroidism, dyslipidemia, hypertension, vaj-kcqcjdl-krzxsrbut diabetes mellitus and chronic kidney stage III. Patient was resolved admitted to [facility] for hyperglycemia/HHS. Patient is normally on Amaryl 4 mg daily for his diabetes. Patient is noted to be with acute kidney injury which is slowly normalizing. Baseline creatinine 1.1. Today patient was in normal state of health off insulin drip when with son at bedside unresponsive. Essentially flaccid. Decision made to emergently intubate with 5 mg Versed and 59 g rocuronium. Stroke alert was called in stat CT/CTA head were performed which were negative. Neurology has seen the patient. Currently receiving aspirin 300 mg 1. Will get stat MRI brain. Examination reveals noticeable weakness in the left upper and lower extremity. Following commands right upper and lower extremity currently. 12/30: Tmax 102.2. Currently afebrile. MRI brain within normal limits. Noted bilateral carotid plaques right greater than left not significant hemodynamically. Subjective 12/31: Extubated yesterday without complication Tmax 101.4. Currently 100.4. No bowel movement since admission. Failed swallow evaluation by bedside. Speech therapy consulted. Awake and alert and following commands. Objective Vital Signs Date Time Temp Pulse Resp B/P Pulse Ox O2 Delivery O2 Flow Rate FiO2 12/31/16 08:19 96 12/31/16 08:00 91 12/31/16 04:00 100.4 19 112/56 12/30/16 21:01 Nasal Cannula 3.00 12/30/16 12:51 95 Intake and Output 12/30/16 12/30/16 12/31/16 08:00 16:00 00:00 Intake Total 624 ml 670 ml 1346 ml Output Total 250 ml 300 ml Balance 374 ml 370 ml 1346 ml Result Diagram: 12/31/16 0613 12/31/1613 Other Results Microbiology Date/Time Procedure Status Source Growth 12/30/16 02:05 Aerobic Blood Culture Received Blood Peripheral Pending 12/30/16 02:05 Anaerobic Blood Culture Received Blood Peripheral Pending 12/30/16 00:50 Urine Culture Received Urine Catheterized Urine Pending 12/30/16 00:50 Gram Stain - Final Resulted Sputum Endotracheal 12/30/16 00:50 Sputum Culture Resulted Sputum Endotracheal Pending 12/29/16 13:35 Aerobic Blood Culture - Preliminary Resulted Blood Peripheral NO GROWTH IN 1 DAY 12/29/16 13:35 Anaerobic Blood Culture - Preliminary Resulted Blood Peripheral NO GROWTH IN 1 DAY Imaging Last Impressions Chest X-Ray 12/30/16 0000 Signed Impressions: Service Date/Time: Friday, December 30, 2016 03:30 - CONCLUSION: No acute disease. Matt Morrow MD Brain MRI 12/30/16 0000 Signed Impressions: Service Date/Time: Friday, December 30, 2016 11:19 - CONCLUSION: Brain MRI within normal limits. Lavelle Anaya MD Neck CTA 12/29/16 0000 Signed Impressions: Service Date/Time: Thursday, December 29, 2016 11:19 - CONCLUSION: 1. Patent carotid arteries and vertebral arteries. The left vertebral is dominant. 2. 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 Harish Agrawal Jr., MD Head CTA 12/29/16 0000 Signed Impressions: Service Date/Time: Thursday, December 29, 2016 11:19 - CONCLUSION: Normal examination. Harish Agrawal Jr., MD Head CT 12/29/16 0000 Signed Impressions: Service Date/Time: Thursday, December 29, 2016 11:19 - CONCLUSION: 1. Bilateral cortical atrophy. 2. No acute intracranial hemorrhage. 3. Stable exam compared to the prior study from 2014. Mehdi Pope MD Carotid Artery Ultrasound 12/29/16 0000 Signed Impressions: Service Date/Time: Thursday, December 29, 2016 18:10 - CONCLUSION: Atherosclerotic plaque of both carotid bifurcations, mild on the right and moderate on the left. No hemodynamically significant narrowing on either side. Richard Hauser MD Objective Remarks GENERAL: 86-year-old male, critically ill currently orotracheally intubated SKIN: Warm and dry. HEAD: Atraumatic. Normocephalic. EYES: Pupils equal and round about 2 mm bilaterally and reactive. No scleral icterus. No injection or drainage. ENT: No nasal bleeding or discharge. Mucous membranes pink and moist. NECK: Trachea midline. No JVD. CARDIOVASCULAR: Regular rate and rhythm. S1, S2. No S4. Without murmur RESPIRATORY: Clear to auscultation. Breath sounds equal bilaterally. GASTROINTESTINAL: Abdomen soft, non-tender, nondistended. Hypoactive bowel sounds are appreciated MUSCULOSKELETAL: Extremities without without significant peripheral edema NEUROLOGICAL: Opens eyes to command. Strength 4+ out of 5 left upper and lower extremity. 5 out of 5 in the right upper and lower extremity. Normal sensation light touch. Withdraws to pain. A/P Assessment and Plan Neuro/Psych: Dementia disorder AMS 12/29 CT/CTA head revealed no acute intracranial findings or vascular findings. Seen stat by neurology. MRI 12/30 brain revealed no acute intracranial findings Current aspirin 300 mg by rectum daily Patient is on Aricept 10 mg by mouth daily for dementia. Continue Neuro checks CV: Hypertension Dyslipidemia Continue Pravachol 20 mg by mouth daily for dyslipidemia. Pending lipid panel On lisinopril 10 mg daily at home for hypertension. This be held in light of acute kidney injury Allow permissive hypertension with altered mental status. Previously around 160 systolic Continue one half normal saline at 84 cc an hour Echocardiogram EF 55-60%. Aortic root mildly dilatated. Resp: Acute hypoxemic respiratory failure secondary to altered mental status Nasal cannula to maintain saturations greater than equal to 92%. Currently on 2 L Incentive spirometry while awake Bronchodilator therapy every 6 hours and as needed GI: Currently nothing by mouth. Speech therapy to evaluate and treat Protonix for GI prophylaxis Colace/as needed Senokot for bowel regimen : Soto will be placed for accurate I's nose any critically ill patient Endo: Diabetes mellitus - AIc 10.3 Hypothyroid Currently on sliding scale insulin/low with Accu checks every 4 hours to maintain euglycemia. 3 units sliding scale past 24 hours Continue levoxyl 75 mcg daily. TSH within normal limits Renal: Acute on chronic kidney injury stage III Baseline creatinine around 1.1. Currently 1.9 Will give Mucomyst 20% 3 cc every 12 hours 4 dosages to be completed today. Continue gentle hydration. Accurate I's and O's Monitor urine output Heme: Macrocytosis Thrombocytopenia Recheck CBC and coags post altered mental status. Results currently pending. ID: Monitor for infection Blood cultures 2 12/30 and 12/29 pending. Sputum with normal oral omar. UA clean. FEN: Hypernatremia Replace electrolytes as clinically indicated. Hypernatremia likely secondary to dehydration upon admission. We'll follow trends. Continue IV fluids to half-normal saline MSK: PT evaluate and treat Access - Utilize peripheral IV. Central line if indicated Prophylaxis - GI - Protonix - DVT - SCD/heparin subcutaneous. Hold if platelets less than 50 Critical Care: The total care time was 35 minutes. Time to perform other separately billable procedures was not included in the critical care time. Patient is stable from a critical care medicine standpoint. We will sign off the [facility]. Call if questions arise. Tate House MD Dec 31, 2016 08:35
[2016-12-31] MEDS: ARTIFICIAL TEARS OPTH SOLN 15 ML BTL EACH EYE SCH ×3 (09:00→16:46)
[2016-12-31] MEDS: CHLORHEXIDINE 0.12% (ORAL KIT) 15 ML CUP MT SCH ×2 (09:16→20:00)
[2016-12-31] MEDS: PANTOPRAZOLE SODIUM 40 MG VIAL IV SCH (09:17)
[2016-12-31] MEDS: DOCUSATE SODIUM 100 MG CAP PO SCH ×2 (09:18→21:00)
[2016-12-31] MEDS: SODIUM CHLORIDE 0.9% FLUSH 5 ML FLUSH IV FLUSH SCH ×2 (09:18→22:15)
[2016-12-31] MEDS: ASPIRIN 300 MG SUPP RECTAL SCH (09:18)
[2016-12-31] MEDS: PRAVASTATIN SOD 20 MG TAB PO SCH (09:19)
--- NOTE | 2016-12-31 09:36 | RADRPT ---
EXAM DATE/TIME: 12/31/2016 08:38 [facility] COMPARISON: No previous studies available for comparison. INDICATIONS : Bilateral leg swelling. MEDICAL HISTORY : Dementia. Hypercholesterolemia. Hypertension. Thyroid disease. Glasses. Diabetes. SURGICAL HISTORY : None. ENCOUNTER: Initial ACUITY: 1 day PAIN SCORE: 0/10 LOCATION: Bilateral legs. TECHNIQUE: Venous ultrasound of the left and right leg was performed from the inguinal ligament to the proximal calf. Real-time, color Doppler and spectral tracing, compression and augmentation techniques were us ed. FINDINGS: RIGHT LEG: There is normal compressibility of the deep venous system from the inguinal region to the proximal ca lf. No echogenic clot is seen in the lumen of the common femoral, femoral, popliteal, and posterior tibial veins. There is a normal response of the venous system to proximal and distal augmentation an d respiration. LEFT LEG: There is normal compressibility of the deep venous system from the inguinal region to the proximal ca lf. No echogenic clot is seen in the lumen of the common femoral, femoral, popliteal, and posterior tibial veins. There is a normal response of the venous system to proximal and distal augmentation an d respiration. CONCLUSION: Normal examination. Richard Hauser MD on December 31, 2016 at 9:34 Board Certified Radiologist. This report was verified electronically.
[2016-12-31] MEDS: MAGNESIUM SULFATE 1 GM PREMIX 100 ML IV SCH ×2 (10:17→10:18)
[2016-12-31 11:14] LABS: ACANTHOCYTES 1+ (NORMAL); BANDS 21 % (0-6); NEUTROPHIL # MANUAL DIFF 5.3 TH/MM3 (1.8-7.7); PLATELET ESTIMATE SMEAR LOW (NORMAL); PLATELET MORPHOLOGY NORMAL (NORMAL); POLYS (SEG NEUTROPHILS) 69 % (16-70); SCAN/DIFF FINAL DIFF MANUAL; TOXIC GRANULATION 1+ (NORMAL); WBC DIFF SAMPLE 100
[2016-12-31] MEDS: SENNOSIDES 8.6 MG TAB PO SCH ×2 (12:00→22:15)
[2016-12-31] MEDS: SODIUM CHLOR 0.45% 1000 ML INJ 1,000 ML IV SCH (13:50)
[2016-12-31] MEDS: DONEPEZIL HCL 5 MG TAB PO SCH (21:00)
[2017-01-01] VITALS (13 sets, daily range): BP systolic 127–145; BP diastolic 60–72; PULSE 82–91; RESP 16–24; TEMP 98.7–101.2; O2SAT 97–100
[2017-01-01] MEDS ORDERED: ACETAMINOPHEN 650 MG SUPP RECTAL PRN (00:45)
[2017-01-01] MEDS: SODIUM CHLOR 0.45% 1000 ML INJ 1,000 ML IV SCH (01:10)
[2017-01-01] MEDS: RESP: ALBUTEROL 2.5 MG/IPRATROPIUM 0.5 MG NEB (SCH) INH ×4 (03:57→21:04)
[2017-01-01] MEDS: INSULIN ASPART SUPPLEMENTAL SCALE SQ SCH ×7 (04:00→23:57)
[2017-01-01] MEDS: LEVOTHYROXINE SODIUM 75 MCG TAB PO SCH (06:00)
[2017-01-01 06:52] LABS: AUTOMATED NEUTROPHIL # 4.3 TH/MM3 (1.8-7.7); BASOPHIL % 0.2 % (0.0-2.0); EOSINOPHIL % 0.8 % (0.0-4.0); HEMATOCRIT 30.4 % (39.0-51.0); LYMPH % 16.2 % (9.0-44.0); MEAN CELL VOLUME 93.1 FL (80.0-100.0); MEAN CORPUSCULAR HEMOGLOBIN 30.9 PG (27.0-34.0); MEAN CORPUSCULAR HGB CONC 33.2 % (32.0-36.0); MONO % 9.5 % (0.0-8.0); NEUT % 73.3 % (16.0-70.0); PLATELET COUNT 63 TH/MM3 (150-450); RED BLOOD COUNT 3.27 MIL/MM3 (4.50-5.90); RED CELL DISTRIBUTION WIDTH 13.5 % (11.6-17.2); WHITE BLOOD COUNT 5.9 TH/MM3 (4.0-11.0)
[2017-01-01 06:57] LABS: HEMO FLAGS AUTO DIFF
[2017-01-01 07:02] LABS: BICARBONATE 21.5 MEQ/L (21.0-32.0); MAGNESIUM 2.2 MG/DL (1.5-2.5); POTASSIUM 4.2 MEQ/L (3.5-5.1)
[2017-01-01] MEDS: CHLORHEXIDINE 0.12% (ORAL KIT) 15 ML CUP MT SCH ×2 (08:00→20:00)
[2017-01-01 08:32] LABS: ACANTHOCYTES OCC (NORMAL)
[2017-01-01 08:33] LABS: OVALOCYTES 1+ (NORMAL); PLATELET ESTIMATE SMEAR LOW (NORMAL); PLATELET MORPHOLOGY ENLARGED (NORMAL); SCAN/DIFF AUTO DIFF CONFIRMED
[2017-01-01] MEDS: PANTOPRAZOLE SODIUM 40 MG VIAL IV SCH (08:34)
[2017-01-01] MEDS: PRAVASTATIN SOD 20 MG TAB PO SCH (08:35)
[2017-01-01] MEDS: ASPIRIN 300 MG SUPP RECTAL SCH (08:35)
[2017-01-01] MEDS: DOCUSATE SODIUM 100 MG CAP PO SCH ×2 (08:35→21:26)
[2017-01-01] MEDS: SODIUM CHLORIDE 0.9% FLUSH 5 ML FLUSH IV FLUSH SCH ×2 (08:35→21:27)
[2017-01-01] MEDS: ARTIFICIAL TEARS OPTH SOLN 15 ML BTL EACH EYE SCH ×3 (09:00→21:26)
--- NOTE | 2017-01-01 10:46 | HHI.PR ---
Subjective Remarks Pt is an 86 y/o M with dementia, DM, HTN, CKD-3 admitted to [facility] 12/27/16 with DKA and worsening AMS. Pt's DKA resolved and sensorium had returned to baseline. Pt then acutely worsened 12/29/16. Pt felt clinically to have suffered CVA, but Neuroimaging studies did NOT confirm this. Pt was successfully extubated 12/29/16 Pt failed swallow exam 12/31/16, but cleared by ST for pureed diet 01/01/17 Pt with NO new complaints. Objective Vitals Vital Signs Date Time Temp Pulse Resp B/P Pulse Ox O2 Delivery O2 Flow Rate FiO2 01/01/17 09:01 100 Nasal Cannula 2.00 01/01/17 08:00 85 01/01/17 08:00 99.0 83 22 139/70 99 01/01/17 06:00 85 01/01/17 04:00 82 01/01/17 04:00 99.7 82 24 143/65 100 01/01/17 02:10 16 01/01/17 02:00 86 01/01/17 00:00 90 01/01/17 00:00 101.2 90 16 136/65 100 12/31/16 22:32 96 Nasal Cannula 2.00 12/31/16 22:00 98 12/31/16 20:00 85 12/31/16 20:00 99.8 85 16 134/63 100 12/31/16 18:00 92 12/31/16 16:00 100.2 87 20 120/59 99 12/31/16 16:00 87 12/31/16 14:00 87 12/31/16 12:00 99.8 93 16 136/53 12/31/16 12:00 93 12/31/16 12/31/16 01/01/17 15:00 23:00 07:00 Intake Total 850 ml 1439 ml 465 ml Output Total 550 ml 700 ml 300 ml Balance 300 ml 739 ml 165 ml IV Total 850 ml 1439 ml 465 ml Output Urine Total 550 ml 700 ml 300 ml Result Diagram: 01/01/17 0551 01/01/17 0551 Imaging Last Impressions Lower Extremity Ultrasound 12/31/16 0000 Signed Impressions: Service Date/Time: Saturday, December 31, 2016 08:38 - CONCLUSION: Normal examination. Richard Hauser MD Chest X-Ray 12/30/16 0000 Signed Impressions: Service Date/Time: Friday, December 30, 2016 03:30 - CONCLUSION: No acute disease. Matt Morrow MD Brain MRI 12/30/16 0000 Signed Impressions: Service Date/Time: Friday, December 30, 2016 11:19 - CONCLUSION: Brain MRI within normal limits. Lavelle Anaya MD Neck CTA 12/29/16 0000 Signed Impressions: Service Date/Time: Thursday, December 29, 2016 11:19 - CONCLUSION: 1. Patent carotid arteries and vertebral arteries. The left vertebral is dominant. 2. 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 Harish Agrawal Jr., MD Head CTA 12/29/16 0000 Signed Impressions: Service Date/Time: Thursday, December 29, 2016 11:19 - CONCLUSION: Normal examination. Harish Agrawal Jr., MD Head CT 12/29/16 0000 Signed Impressions: Service Date/Time: Thursday, December 29, 2016 11:19 - CONCLUSION: 1. Bilateral cortical atrophy. 2. No acute intracranial hemorrhage. 3. Stable exam compared to the prior study from 2013. Mehdi Pope MD Carotid Artery Ultrasound 12/29/16 0000 Signed Impressions: Service Date/Time: Thursday, December 29, 2016 18:10 - CONCLUSION: Atherosclerotic plaque of both carotid bifurcations, mild on the right and moderate on the left. No hemodynamically significant narrowing on either side. Richard Hauser MD Objective Remarks GENERAL: This is a well-nourished, well-developed patient, in no apparent distress. CARDIOVASCULAR: Regular rate and rhythm without murmurs, gallops, or rubs. RESPIRATORY: Clear to auscultation. Breath sounds equal bilaterally. No wheezes , rales, or rhonchi. GASTROINTESTINAL: Abdomen soft, non-tender, nondistended. Normal active bowel sounds MUSCULOSKELETAL: Extremities without clubbing, cyanosis, or edema. NEURO: Alert & Oriented x2, but confused at times. muscle strength: 4/5 LUE and LLE; 5/5 RUE & RLE A/P Problem List: (1) CVA (cerebral vascular accident) Status: Acute Plan: - diagnosis made on clinical basis - neuroimaging does NOT show ischemic changes - EEG (12/29/16) --> abnormal study, slowing, c/w encephalomalacia, no epileptiform activity noted - Echocardiogram (12/30/16) --> EF 55-60% - PT/ST - supportive care - diet upgraded to pureed (01/01/17) - transfer out of ICU (2) DKA (diabetic ketoacidoses) Status: Acute Plan: - now resolved - Pt was brought to the ED on 12/27/16 with loss of appetite, weakness and confusion x 2 days. - He has reportedly had poor oral intake and had not taken any of his medications in 2 days. - HgA1C 10.3 (12/27/16) - Hypernatremia, slowly improving - off insulin gtt - SSI - will need SNF upon discharge (3) SARAI (acute kidney injury) Status: Acute Plan: - See above. - Likely secondary to dehydration - improved with IVFs - Cr 4.90 (12/27/16), Cr 1.66 (12/31/16) - Monitor labs (4) Altered mental status Status: Chronic Plan: - Improved to likely baseline - Pt with baseline dementia but reportedly more confused on admission than baseline, likely secondary to DKA - Resumed Aricept - Request Palliative for clarification of goals (5) HTN (hypertension) Status: Chronic Plan: - Lisinopril held due to SARAI - Pt's BP reading are essentially currently stable without scheduled BP medications - Clonidine PRN - Monitor (6) Hyperlipidemia Status: Chronic Plan: - Cont. home meds (7) Dementia Status: Chronic Plan: - see above Problem Qualifiers (1) CVA (cerebral vascular accident): Qualified Code: I63.9 - Cerebrovascular accident (CVA), unspecified mechanism (2) DKA (diabetic ketoacidoses): Qualified Code: E13.10 - Diabetic ketoacidosis without coma associated with type 2 diabetes mellitus Roman Meyer DO Jan 01, 2017 10:46
[2017-01-01] MEDS: 1/2 NS + KCL 20 MEQ INJ 1,000 ML IV SCH ×2 (11:15→23:10)
[2017-01-01] MEDS: SENNOSIDES 8.6 MG TAB PO SCH ×2 (12:00→23:50)
[2017-01-01] MEDS ORDERED: LORazepam 2 MG/ML VIAL IVP PRN (20:00)
[2017-01-01] MEDS: DONEPEZIL HCL 5 MG TAB PO SCH (21:26)
[2017-01-01] MEDS: CHLORHEXIDINE GLUCONATE 2 % 1 PACK (2 CLOTHS) TOP SCH (23:41)
[2017-01-02] VITALS (7 sets, daily range): BP systolic 118–170; BP diastolic 64–77; PULSE 73–91; RESP 16–18; TEMP 98–99.2; O2SAT 95–100
[2017-01-02] MEDS: cloNIDine HCL 0.1 MG TAB PO PRN (00:01)
[2017-01-02] MEDS: RESP: ALBUTEROL 2.5 MG/IPRATROPIUM 0.5 MG NEB (SCH) INH ×2 (04:00→10:42)
[2017-01-02] MEDS: INSULIN ASPART SUPPLEMENTAL SCALE SQ SCH ×4 (04:11→20:20)
[2017-01-02] MEDS: LEVOTHYROXINE SODIUM 75 MCG TAB PO SCH (05:09)
[2017-01-02] MEDS: CHLORHEXIDINE 0.12% (ORAL KIT) 15 ML CUP MT SCH ×2 (08:00→20:30)
[2017-01-02] MEDS: ARTIFICIAL TEARS OPTH SOLN 15 ML BTL EACH EYE SCH ×3 (08:27→18:00)
[2017-01-02] MEDS: PANTOPRAZOLE SODIUM 40 MG VIAL IV SCH (08:27)
[2017-01-02] MEDS: DOCUSATE SODIUM 100 MG CAP PO SCH ×2 (08:28→20:30)
[2017-01-02] MEDS: SODIUM CHLORIDE 0.9% FLUSH 5 ML FLUSH IV FLUSH SCH ×2 (08:28→20:30)
[2017-01-02] MEDS: PRAVASTATIN SOD 20 MG TAB PO SCH (08:28)
[2017-01-02] MEDS: ASPIRIN 300 MG SUPP RECTAL SCH (08:28)
--- NOTE | 2017-01-02 10:53 | HHI.PR ---
Subjective Remarks No new complaints. Pt is tolerating PO intake. Objective Vitals Vital Signs Date Time Temp Pulse Resp B/P Pulse Ox O2 Delivery O2 Flow Rate FiO2 01/02/17 10:43 98 Nasal Cannula 2.00 01/02/17 08:00 99.0 73 18 118/74 100 01/02/17 04:00 98.0 82 16 138/77 96 01/02/17 00:00 98.9 91 16 170/73 95 01/01/17 22:00 91 01/01/17 21:04 97 Nasal Cannula 2.00 01/01/17 20:00 83 01/01/17 20:00 98.7 83 20 145/72 97 01/01/17 16:00 99.2 91 22 132/68 99 01/01/17 16:00 85 01/01/17 14:00 85 01/01/17 12:00 82 01/01/17 12:00 99.3 87 22 127/60 99 01/01/17 01/01/17 01/02/17 15:00 23:00 07:00 Intake Total 664 ml 727 ml 120 ml Output Total 350 ml 350 ml 250 ml Balance 314 ml 377 ml -130 ml Intake Oral 100 ml 90 ml 120 ml IV Total 564 ml 637 ml Output Urine Total 350 ml 350 ml 250 ml # Bowel Movements 0 0 Result Diagram: 01/01/17 0551 01/01/17 0551 Imaging Last Impressions Lower Extremity Ultrasound 12/31/16 0000 Signed Impressions: Service Date/Time: Saturday, December 31, 2016 08:38 - CONCLUSION: Normal examination. Richard Hauser MD Chest X-Ray 12/30/16 0000 Signed Impressions: Service Date/Time: Friday, December 30, 2016 03:30 - CONCLUSION: No acute disease. Matt Morrow MD Brain MRI 12/30/16 0000 Signed Impressions: Service Date/Time: Friday, December 30, 2016 11:19 - CONCLUSION: Brain MRI within normal limits. Lavelle Anaya MD Neck CTA 12/29/16 0000 Signed Impressions: Service Date/Time: Thursday, December 29, 2016 11:19 - CONCLUSION: 1. Patent carotid arteries and vertebral arteries. The left vertebral is dominant. 2. 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 Harish Agrawal Jr., MD Head CTA 12/29/16 0000 Signed Impressions: Service Date/Time: Thursday, December 29, 2016 11:19 - CONCLUSION: Normal examination. Harish Agrawal Jr., MD Head CT 12/29/16 0000 Signed Impressions: Service Date/Time: Thursday, December 29, 2016 11:19 - CONCLUSION: 1. Bilateral cortical atrophy. 2. No acute intracranial hemorrhage. 3. Stable exam compared to the prior study from 2013. Mehdi Pope MD Carotid Artery Ultrasound 12/29/16 0000 Signed Impressions: Service Date/Time: Thursday, December 29, 2016 18:10 - CONCLUSION: Atherosclerotic plaque of both carotid bifurcations, mild on the right and moderate on the left. No hemodynamically significant narrowing on either side. Richard Hauser MD Objective Remarks GENERAL: This is a well-nourished, well-developed patient, in no apparent distress. CARDIOVASCULAR: Regular rate and rhythm without murmurs, gallops, or rubs. RESPIRATORY: Clear to auscultation. Breath sounds equal bilaterally. No wheezes , rales, or rhonchi. GASTROINTESTINAL: Abdomen soft, non-tender, nondistended. Normal active bowel sounds MUSCULOSKELETAL: Extremities without clubbing, cyanosis, or edema. NEURO: Alert & Oriented x2, but confused at times. muscle strength: 4/5 LUE and LLE; 5/5 RUE & RLE A/P Problem List: (1) CVA (cerebral vascular accident) Status: Acute Plan: - diagnosis made on clinical basis - neuroimaging does NOT show ischemic changes - EEG (12/29/16) --> abnormal study, slowing, c/w encephalomalacia, no epileptiform activity noted - Echocardiogram (12/30/16) --> EF 55-60% - PT/ST - supportive care - diet upgraded to pureed (01/01/17) - anticipate discharge to SNF 01/03/17 (2) DKA (diabetic ketoacidoses) Status: Acute Plan: - resolved - Pt was brought to the ED on 12/27/16 with loss of appetite, weakness and confusion x 2 days. - He has reportedly had poor oral intake and had not taken any of his medications in 2 days. - HgA1C 10.3 (12/27/16) - Hypernatremia, slowly improving - off insulin gtt - SSI - will need SNF upon discharge (3) SARAI (acute kidney injury) Status: Acute Plan: - See above. - Likely secondary to dehydration - improved with IVFs - Cr 4.90 (12/27/16), Cr 1.66 (12/31/16) - Monitor labs (4) Altered mental status Status: Chronic Plan: - Improved to likely baseline - Pt with baseline dementia but reportedly more confused on admission than baseline, likely secondary to DKA - Resumed Aricept - Request Palliative for clarification of goals (5) HTN (hypertension) Status: Chronic Plan: - Lisinopril held due to SARAI - Pt's BP reading are essentially currently stable without scheduled BP medications - Clonidine PRN - Monitor (6) Hyperlipidemia Status: Chronic Plan: - Cont. home meds (7) Dementia Status: Chronic Plan: - see above (8) Poor dental hygiene Status: Acute Plan: - pt has a lower incisor that is loose and needs dental extraction to avoid aspiration risk - maxillofacial service requests that pt f/u in their office outpt Problem Qualifiers (1) CVA (cerebral vascular accident): Qualified Code: I63.9 - Cerebrovascular accident (CVA), unspecified mechanism (2) DKA (diabetic ketoacidoses): Qualified Code: E13.10 - Diabetic ketoacidosis without coma associated with type 2 diabetes mellitus Roman Meyer DO Jan 02, 2017 10:53
[2017-01-02] MEDS: SENNOSIDES 8.6 MG TAB PO SCH (12:00)
[2017-01-02 13:29] LABS: POTASSIUM 4.5 MEQ/L (3.5-5.1)
--- NOTE | 2017-01-02 14:46 | PD.CONS ---
Consult Service Palliative Care Consult Requested By Dr. Meyer Primary Care Physician Raciel Avila M.D. Reason for Consultation a. To assist with evaluation of confusion. b. To assist medical decision maker(s) with: better understanding of current medical conditions; weighing benefits/burdens of medical treatment options; making medical treatment decisions. HPI History of Present Illness 84-year-old elderly gentleman with past medical history of diabetes mellitus, history of DKA, dementia, CAD, hypertension, dyslipidemia and hypothyroidism that presented to the emergency room on 12/27/2016 due to loss of appetite, weakness and confusion for the past 2 days. Her spouse stated although has dementia, normally can take care of his activities of daily living of bathing himself, eating himself, Spouse denies that he was falling, or was noncompliant with his medication. She did endorse patient was losing some weight despite eating. For current hospitalization patient was brought into the emergency room and was found to be in DKA. Patient also had acute kidney injury with a creatinine of 4.9, elevated bicarbonate, hyperglycemia. He has mildly elevated troponin at 0.07. Patient was transferred to the unit and placed on insulin drip. Patient' s hyperglycemia resolved and acute kidney injury was normalizing. Unfortunately patient had another acute event in which patient became flaccid. This occurred on 12/29/2016. Patient was emergently intubated in the stroke alert was called CT and CTA of the head were negative. MRI of the brain was within normal limits. Patient had elevated temperature and fever. Blood cultures, urine cultures, sputum cultures were collected and so far no growth. On 12/30/2016 patient was was extubated without complications. Patient initially failed a swallow eval, but gradually past and is tolerating by mouth intake. Given patient's advanced age, history of dementia, and current course of hospitalization where patient was in the ICU, hospitalist consulted palliative care to review goals of care. On my visit today, patient was sleeping comfortably but able to arouse easily. He is oriented to person and place, but not time. He says that the president is Royce Marshall. He knows he is in the hospital but does not know why. He is amenable for me to call spouse to review goals of care. Janice Gonzalez is patient's spouse. She seems to comprehend patient's course of hospitalization. She acknowledges that patient has dementia. Spouse however does not want to make any decisions without her children's involvement. He has asked me to call their daughter Madison . Unfortunately He has just left, on her way driving to [place], and may not be convenient to speak over the phone. Mrs. Gonzalez is amenable for phone call to take place at 10 AM in the morning. I asked Mrs. Gonzalez about CODE STATUS, and at this current time would want full code, to be discussed further with daughter tomorrow. Function/Cognitive Trajectory Her spouse stated although has dementia, normally can take care of his activities of daily living of bathing himself, eating himself, Spouse denies that he was falling, or was noncompliant with his medication. She did endorse patient was losing some weight despite eating. Review of Systems ROS Limitations: Clinical Condition (confused) Constitutional: COMPLAINS OF: Weight loss Gastrointestinal: COMPLAINS OF: Difficulty Swallowing Psychiatric: COMPLAINS OF: Confusion Past Family Social History Coded Allergies: No Known Allergies (Verified , 12/27/16) Past Medical History Diabetes mellitus, noncompliant, hx of DKA HTN Hyperlipidemia Dementia Hypothyroidism CKD, stage 3 Past Surgical History Circumcision Nothing else was reported Reported Medications Glimepiride 4 Mg Tab 4 Mg PO BIDAC Lovastatin 20 Mg Tab 20 Mg PO DAILY Lisinopril 10 Mg Tab 10 Mg PO DAILY Aricept (Donepezil) 10 Mg Tab 10 Mg PO HS Levothyroxine (Levothyroxine Sodium) 75 Mcg Tab 75 Mcg PO DAILY Current Medications Medications (Trade) Dose Ordered Sig/Joel Route Start Time Stop Time Status Last Admin (Aricept) 10 mg HS PO 12/27/16 21:00 01/01/17 21:26 (Synthroid) 75 mcg DAILY@06 PO 12/28/16 06:00 01/02/17 05:09 (Pravachol) 20 mg DAILY PO 12/28/16 09:00 01/02/17 08:28 (Catapres) 0.1 mg Q6H PRN PO 12/27/16 14:30 01/02/17 00:01 Miscellaneous Information Patient in critical care unit? Ass... Q361D XX 12/27/16 22:00 12/27/16 22:00 (D50w (Vial) Inj) 25 ml UNSCH PRN IV PUSH 12/27/16 23:30 (Glucagon Inj) 1 mg UNSCH PRN OTHER 12/27/16 23:30 (NovoLOG SUPPLEMENTAL SCALE) 1 Q4HR SQ 12/28/16 12:00 01/02/17 08:28 (NS Flush) 2 ml UNSCH PRN IV FLUSH 12/29/16 12:15 (NS Flush) 2 ml BID IV FLUSH 12/29/16 21:00 01/02/17 08:28 (Tylenol) 650 mg Q6H PRN PO 12/29/16 12:15 (Protonix Inj) 40 mg DAILY IV 12/30/16 09:00 01/02/17 08:27 (Tears Naturale Opth Soln) 1 drop TID EACH EYE 12/29/16 13:00 01/02/17 08:27 (Zofran Inj) 4 mg Q6H PRN IV 12/29/16 12:15 (Colace) 100 mg BID PO 12/29/16 21:00 01/02/17 08:28 Miscellaneous Information 1 Q361D XX 12/29/16 12:15 (Chlorhexidine 2% Cloth) 3 pack Taper DAILY@04 TOP 12/30/16 04:00 12/26/17 03:59 12/31/16 22:16 (Chlorhexidine 2% Cloth) 3 pack UNSCH PRN TOP 12/29/16 12:15 (Peridex 0.12% Liq) 15 ml BID@08,20 MT 12/29/16 20:00 01/01/17 08:00 (Aspirin Supp) 300 mg DAILY RECTAL 12/29/16 13:00 01/02/17 08:28 (Senokot) 17.2 mg Q12H PO 12/31/16 12:00 01/01/17 23:50 (Glycerin Adult Supp) 2 gm BID PRN RECTAL 12/31/16 08:30 (Tylenol Supp) 650 mg Q6H PRN RECTAL 01/01/17 00:45 01/01/17 01:10 (Ativan Inj) 0.5 mg Q6H PRN IVP 01/01/17 20:00 Family History Unable to obtain from the pt Substance Use Tobacco: No Alcohol: No Prescription med abuse: No Illicits: No Psychosocial History Patient lives at home with . Patient used to be a trailer mechanic Patient has 2 children Gricelda (daughter) Bob (son) Spiritual/Cultural Factors Listed as Anabaptism Living Will: Never completed Health Care Surrogate: Never completed Durable Power of Cut Out Machine Operator: Never completed Physical Exam Vital Signs Date Time Temp Pulse Resp B/P Pulse Ox O2 Delivery O2 Flow Rate FiO2 01/02/17 12:00 98.1 80 18 126/64 100 01/02/17 10:43 98 Nasal Cannula 2.00 01/02/17 08:00 99.0 73 18 118/74 100 01/02/17 04:00 98.0 82 16 138/77 96 01/02/17 00:00 98.9 91 16 170/73 95 01/01/17 22:00 91 01/01/17 21:04 97 Nasal Cannula 2.00 01/01/17 20:00 83 01/01/17 20:00 98.7 83 20 145/72 97 01/01/17 16:00 99.2 91 22 132/68 99 01/01/17 16:00 85 01/01/17 01/02/17 19:00 07:00 Intake Total 664 ml 847 ml Output Total 350 ml 600 ml Balance 314 ml 247 ml Intake Oral 100 ml 210 ml IV Total 564 ml 637 ml Output Urine Total 350 ml 600 ml # Bowel Movements 0 Exam CONSTITUTIONAL/GENERAL: This is an adequately nourished patient, in no apparent distress. SKIN: No jaundice, rashes, or lesions. HEAD: Atraumatic. Normocephalic. EYES: Pupils equal and round and reactive. Extraocular motions intact. No scleral icterus. No injection or drainage. Fundi not examined. ENT: Hearing grossly normal. Nose without bleeding or purulent drainage. Throat without visible erythema, exudates, masses, or lesions. Poor dentition noted NECK: Trachea midline. Supple, nontender. No palpable thyroid enlargement or nodularity. CARDIOVASCULAR: Regular rate and rhythm without murmurs, gallops, or rubs. No JVD. Peripheral pulses symmetric. RESPIRATORY/CHEST: Symmetric, unlabored respirations. Clear to auscultation. Breath sounds equal bilaterally. GASTROINTESTINAL: Abdomen soft, non-tender, nondistended. No hepato-splenomegaly , or palpable masses. No guarding. Bowel sounds present. GENITOURINARY: Without palpable bladder distension. Soto catheter in place. MUSCULOSKELETAL: Extremities without clubbing, cyanosis, or edema. LYMPHATICS: No palpable cervical or supraclavicular adenopathy. NEUROLOGICAL: Awake and alert. Motor and sensory grossly within normal limits. Follows commands. Confused. PSYCHIATRIC: No obvious anxiety/depression. no apparent hallucinations or other psychotic thought process. Diagnostic Tests Laboratory Laboratory Tests Test 12/31/16 01/01/17 01/02/17 01/02/17 06:13 05:51 06:28 11:32 White Blood Count 5.9 TH/MM3 5.9 TH/MM3 (4.0-11.0) (4.0-11.0) Red Blood Count 3.30 MIL/MM3 3.27 MIL/MM3 (4.50-5.90) (4.50-5.90) Hemoglobin 10.0 GM/DL 10.1 GM/DL (13.0-17.0) (13.0-17.0) Hematocrit 30.9 % 30.4 % (39.0-51.0) (39.0-51.0) Mean Corpuscular Volume 93.5 FL 93.1 FL (80.0-100.0) (80.0-100.0) Mean Corpuscular Hemoglobin 30.4 PG 30.9 PG (27.0-34.0) (27.0-34.0) Mean Corpuscular Hemoglobin 32.5 % 33.2 % Concent (32.0-36.0) (32.0-36.0) Red Cell Distribution Width 13.5 % 13.5 % (11.6-17.2) (11.6-17.2) Platelet Count 54 TH/MM3 63 TH/MM3 (150-450) (150-450) Mean Platelet Volume 11.6 FL 10.3 FL (7.0-11.0) (7.0-11.0) Neutrophils (%) (Auto) 72.9 % 73.3 % (16.0-70.0) (16.0-70.0) Lymphocytes (%) (Auto) 21.3 % 16.2 % (9.0-44.0) (9.0-44.0) Monocytes (%) (Auto) 5.6 % (0.0-8.0) 9.5 % (0.0-8.0) Eosinophils (%) (Auto) 0.1 % (0.0-4.0) 0.8 % (0.0-4.0) Basophils (%) (Auto) 0.1 % (0.0-2.0) 0.2 % (0.0-2.0) Neutrophils # (Auto) 4.3 TH/MM3 4.3 TH/MM3 (1.8-7.7) (1.8-7.7) Lymphocytes # (Auto) 1.3 TH/MM3 1.0 TH/MM3 (1.0-4.8) (1.0-4.8) Monocytes # (Auto) 0.3 TH/MM3 0.6 TH/MM3 (0-0.9) (0-0.9) Eosinophils # (Auto) 0.0 TH/MM3 0.0 TH/MM3 (0-0.4) (0-0.4) Basophils # (Auto) 0.0 TH/MM3 0.0 TH/MM3 (0-0.2) (0-0.2) CBC Comment AUTO DIFF AUTO DIFF Differential Total Cells 100 Counted Neutrophils % (Manual) 69 % (16-70) Band Neutrophils % 21 % (0-6) Lymphocytes % 5 % (9-44) Monocytes % 5 % (0-8) Neutrophils # (Manual) 5.3 TH/MM3 (1.8-7.7) Differential Comment FINAL DIFF AUTO DIFF MANUAL CONFIRMED Toxic Granulation 1+ (NORMAL) Platelet Estimate LOW (NORMAL) LOW (NORMAL) Platelet Morphology Comment NORMAL ENLARGED (NORMAL) (NORMAL) Acanthocytes 1+ (NORMAL) OCC (NORMAL) Sodium Level 148 MEQ/L 146 MEQ/L 144 MEQ/L (136-145) (136-145) (136-145) Potassium Level 4.1 MEQ/L 4.2 MEQ/L 4.5 MEQ/L (3.5-5.1) (3.5-5.1) (3.5-5.1) Chloride Level 116 MEQ/L 114 MEQ/L 111 MEQ/L (98-107) (98-107) (98-107) Carbon Dioxide Level 19.4 MEQ/L 21.5 MEQ/L 20.0 MEQ/L (21.0-32.0) (21.0-32.0) (21.0-32.0) Anion Gap 13 MEQ/L (5-15) 11 MEQ/L (5-15) 13 MEQ/L (5-15) Blood Urea Nitrogen 32 MG/DL (7-18) 26 MG/DL (7-18) 25 MG/DL (7-18) Creatinine 1.98 MG/DL 1.66 MG/DL 1.61 MG/DL (0.60-1.30) (0.60-1.30) (0.60-1.30) Estimat Glomerular Filtration 39 ML/MIN (>89) 48 ML/MIN (>89) 50 ML/MIN (>89) Rate Random Glucose 222 MG/DL 145 MG/DL 135 MG/DL (74-106) (74-106) (74-106) Calcium Level 7.4 MG/DL 8.1 MG/DL 8.0 MG/DL (8.5-10.1) (8.5-10.1) (8.5-10.1) Protein Corrected Calcium 8.0 MG/DL (8.5-10.1) Phosphorus Level 2.8 MG/DL 2.5 MG/DL (2.5-4.9) (2.5-4.9) Magnesium Level 1.7 MG/DL 2.2 MG/DL (1.5-2.5) (1.5-2.5) Total Protein 6.0 GM/DL (6.4-8.2) Ovalocytes 1+ (NORMAL) B-Type Natriuretic Peptide 134 PG/ML (0-100) Result Diagram: 01/01/17 0551 01/02/17 1132 Imaging Last Impressions Lower Extremity Ultrasound 12/31/16 0000 Signed Impressions: Service Date/Time: Saturday, December 31, 2016 08:38 - CONCLUSION: Normal examination. Richard Hauser MD Chest X-Ray 12/30/16 0000 Signed Impressions: Service Date/Time: Friday, December 30, 2016 03:30 - CONCLUSION: No acute disease. Matt Morrow MD Brain MRI 12/30/16 0000 Signed Impressions: Service Date/Time: Friday, December 30, 2016 11:19 - CONCLUSION: Brain MRI within normal limits. Lavelle Anaya MD Neck CTA 12/29/16 0000 Signed Impressions: Service Date/Time: Thursday, December 29, 2016 11:19 - CONCLUSION: 1. Patent carotid arteries and vertebral arteries. The left vertebral is dominant. 2. 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 Harish Agrawal Jr., MD Head CTA 12/29/16 0000 Signed Impressions: Service Date/Time: Thursday, December 29, 2016 11:19 - CONCLUSION: Normal examination. Harish Agrawal Jr., MD Head CT 12/29/16 0000 Signed Impressions: Service Date/Time: Thursday, December 29, 2016 11:19 - CONCLUSION: 1. Bilateral cortical atrophy. 2. No acute intracranial hemorrhage. 3. Stable exam compared to the prior study from 2013. Mehdi Pope MD Carotid Artery Ultrasound 12/29/16 0000 Signed Impressions: Service Date/Time: Thursday, December 29, 2016 18:10 - CONCLUSION: Atherosclerotic plaque of both carotid bifurcations, mild on the right and moderate on the left. No hemodynamically significant narrowing on either side. Richard Hauser MD Patient/Family Conference Present at Family Conference: spouse. Family Conference Location: Telephone Issues Discussed: * Palliative care role, purpose, approach * Additional medical, psychosocial, and spiritual history * Patients general health, functional status, and cognitive changes in the months leading up to the current hospitalization * Patient/family understanding of the current medical problems * Patient/family understanding of prognosis * Patients goals of care as best understood from advance directives and/or conversations and/or values * Current medical treatment options and benefits/burdens of those options * Likely scenarios comparing ongoing aggressive care with a transition to comfort measures only * Questions answered to the best of my ability * Palliative care contact information provided Assessment and Plan Disease Oriented Problem List: (1) Dementia Comment: Not end-stage Alzheimer's (2) CKD (chronic kidney disease) stage 4, GFR 15-29 ml/min (3) Hypernatremia (4) Dehydration (5) SARAI (acute kidney injury) (6) DKA (diabetic ketoacidoses) (7) CVA (cerebral vascular accident) Comment: cva like episode, but MRI was negative. Symptom Scale: (1) Confusion Pertinent Non-Medical Issues Psychosocial: Spiritual: Legal: Ethical issues impacting care: Important Contacts Gricelda [phone] Janice Gonzalez [phone] Prognosis 86-year-old with a history of dementia, history of DKA and hyperglycemia. Although dementia is not end-stage at this point, currently there is a convergence of multiple issues that make patient's very fragile. Patient is losing weight, recently intubated although successfully extubated, poor appetite. Would meet hospice criteria of goals of care were comfort measures only, warrants evaluation, and family decides to. Code Status: Full Code Plan == Capacity- pt has no capacity to make medical decision. ==Health Care Proxy- spouse. Spouse however does not want to make any medical decision without chilren. Ask me to call daughter. Daughter driving, on her way back up to [place]. Tentative set up for phone call at 10 am tomorrow. ==Goals of care: evolving, but aggressive for now. We have reviewed some of the topics that will be discussed such as his current hospitalization, advace age, code status ...etc... == full code for now. == Pt denies any pain or dyspnea. Confusion- appears to be at baseline. == palliative care will continue to follow up. Time Spent Total Floor Time (mins): 45 Face to Face Time (mins): 32 Thank you for the opportunity to participate in the care of Mr. Gonzalez. Attestation To help prompt me to consider important information that might be impacting today's encounter and assessment, information from prior notes written by myself or my colleagues may have been "brought forward" into today's note. My signature on this note, however, is an attestation that I personally performed the exam, history, and/or decision-making noted today, and, unless otherwise indicated, the interactions with patient, family, and staff as well as the review of records all occurred today. I also attest that the listed assessment and stated plan reflect my best clinical judgment today based on the combination of historical information, prior notes, and today's exam/ interactions. When time spent is documented, it refers only to time spent today by the signer, or if indicated, combined time spent today by collaborating physician/nurse practitioner. Toan Thomas MD Jan 02, 2017 14:45
[2017-01-02] MEDS: DONEPEZIL HCL 5 MG TAB PO SCH (20:30)
[2017-01-03] MEDS: SENNOSIDES 8.6 MG TAB PO SCH ×2 (00:01→11:13)
[2017-01-03] MEDS: INSULIN ASPART SUPPLEMENTAL SCALE SQ SCH ×5 (00:02→15:12)
[2017-01-03 00:05] VITALS: BP 173/79; PULSE 86; RESP 18; TEMP 100.6; O2SAT 96
[2017-01-03] MEDS: CHLORHEXIDINE GLUCONATE 2 % 1 PACK (2 CLOTHS) TOP SCH (04:00)
[2017-01-03 04:05] VITALS: BP 178/77; PULSE 78; RESP 19; TEMP 98.6; O2SAT 97
[2017-01-03] MEDS: LEVOTHYROXINE SODIUM 75 MCG TAB PO SCH (04:21)
[2017-01-03] MEDS: cloNIDine HCL 0.1 MG TAB PO PRN (04:21)
[2017-01-03 06:31] LABS: BICARBONATE 19.7 MEQ/L (21.0-32.0); POTASSIUM 4.2 MEQ/L (3.5-5.1)
[2017-01-03 08:00] VITALS: BP 154/81; PULSE 80; RESP 18; TEMP 99; O2SAT 98
[2017-01-03] MEDS: CHLORHEXIDINE 0.12% (ORAL KIT) 15 ML CUP MT SCH (08:00)
[2017-01-03] MEDS: DOCUSATE SODIUM 100 MG CAP PO SCH (09:24)
[2017-01-03] MEDS: ASPIRIN 300 MG SUPP RECTAL SCH (09:24)
[2017-01-03] MEDS: PANTOPRAZOLE SODIUM 40 MG VIAL IV SCH (09:24)
[2017-01-03] MEDS: PRAVASTATIN SOD 20 MG TAB PO SCH (09:24)
[2017-01-03] MEDS: SODIUM CHLORIDE 0.9% FLUSH 5 ML FLUSH IV FLUSH SCH (09:24)
[2017-01-03] MEDS: ARTIFICIAL TEARS OPTH SOLN 15 ML BTL EACH EYE SCH ×3 (09:25→15:11)
--- NOTE | 2017-01-03 10:56 | HHI.HCPN ---
Reason for visit a. To assist with evaluation of confusion. b. To assist medical decision maker(s) with: better understanding of current medical conditions; weighing benefits/burdens of medical treatment options; making medical treatment decisions. Subjective/Interval History Tmax of 100.6. Pt is alert to person and place, but confused. Denies any discomfort. Pleasant. === 84-year-old elderly gentleman with past medical history of diabetes mellitus, history of DKA, dementia, CAD, hypertension, dyslipidemia and hypothyroidism that presented to the emergency room on 12/27/2016 due to loss of appetite, weakness and confusion for the past 2 days. Her spouse stated although has dementia, normally can take care of his activities of daily living of bathing himself, eating himself, Spouse denies that he was falling, or was noncompliant with his medication. She did endorse patient was losing some weight despite eating. For current hospitalization patient was brought into the emergency room and was found to be in DKA. Patient also had acute kidney injury with a creatinine of 4.9, elevated bicarbonate, hyperglycemia. He has mildly elevated troponin at 0.07. Patient was transferred to the unit and placed on insulin drip. Patient' s hyperglycemia resolved and acute kidney injury was normalizing. Unfortunately patient had another acute event in which patient became flaccid. This occurred on 12/29/2016. Patient was emergently intubated in the stroke alert was called CT and CTA of the head were negative. MRI of the brain was within normal limits. Patient had elevated temperature and fever. Blood cultures, urine cultures, sputum cultures were collected and so far no growth. On 12/30/2016 patient was was extubated without complications. Patient initially failed a swallow eval, but gradually past and is tolerating by mouth intake. Given patient's advanced age, history of dementia, and current course of hospitalization where patient was in the ICU, hospitalist consulted palliative care to review goals of care. On my visit today, patient was sleeping comfortably but able to arouse easily. He is oriented to person and place, but not time. He says that the president is Royce Olivares. He knows he is in the hospital but does not know why. He is amenable for me to call spouse to review goals of care. Janice Gonzalez is patient's spouse. She seems to comprehend patient's course of hospitalization. She acknowledges that patient has dementia. Spouse however does not want to make any decisions without her children's involvement. He has asked me to call their daughter Madison . Unfortunately He has just left, on her way driving to [place], and may not be convenient to speak over the phone. Mrs. Gonzalez is amenable for phone call to take place at 10 AM in the morning. I asked Mrs. Gonzalez about CODE STATUS, and at this current time would want full code, to be discussed further with daughter tomorrow. Family/friend interactions Called daughter Gricelda, who spouse want me to reviewed goals of care. Gricelda is an RN. Reviewed with her pt's course of hospitalization which she has a firm grasp on. She state that before current hospitalization, pt have been relatively functionaly doing his own adls (bathing, feeding). His memory has been poor. She state she has not have recent prior hospitalization. She endorses that is compliant with his meds, and had been on insulin before, but due to hypoglycemia, has been swictch back to oral. Discussed pt's challenges, hyperglycemia, and future risk of tia or stroke. Reviewed pt's hx of dementia which daughter state its mild. Pt has had wt loss, which daughter attributes is due to his dentition. "He eats 5 meals per day. and in small portions. He worries, he will choke on his tooth." For now pt's daughter's goals is to get pt to SNF/ get stronger and to go back home if he is able to. Hospice was brought up int he conversation and she said not at this time. Reviewed with Gricelda time to reconsider hospice, if pt is not doing well in rehab, multiple hospitalization, continue wt loss etc... Review code status- She said she wants to speak with mother. Pt is to remain full code. Reviewed trach and peg, which she states likely pt would not want. Advance Directives Living Will: Never completed Health Care Surrogate: Never completed Durable Power of Centerpuncher: Never completed Objective Vital Signs Date Time Temp Pulse Resp B/P Pulse Ox O2 Delivery O2 Flow Rate FiO2 01/03/17 08:00 99.0 80 18 154/81 98 01/03/17 04:05 98.6 78 19 178/77 97 01/03/17 00:05 100.6 86 18 173/79 96 01/02/17 19:15 99.0 76 18 130/70 96 01/02/17 15:50 99.2 78 18 130/70 99 01/02/17 12:00 98.1 80 18 126/64 100 Intake & Output 01/03/17 01/03/17 07:00 19:00 Intake Total 360 ml Balance 360 ml Intake Oral 360 ml # Voids 7 # Bowel Movements 0 Physical Exam CONSTITUTIONAL/GENERAL: This is an adequately nourished patient, in no apparent distress. SKIN: No jaundice, rashes, or lesions. HEAD: Atraumatic. Normocephalic. EYES: Pupils equal and round and reactive. Extraocular motions intact. No scleral icterus. No injection or drainage. Fundi not examined. ENT: Hearing grossly normal. Nose without bleeding or purulent drainage. Throat without visible erythema, exudates, masses, or lesions. Poor dentition noted NECK: Trachea midline. Supple, nontender. No palpable thyroid enlargement or nodularity. CARDIOVASCULAR: Regular rate and rhythm without murmurs, gallops, or rubs. No JVD. Peripheral pulses symmetric. RESPIRATORY/CHEST: Symmetric, unlabored respirations. Clear to auscultation. Breath sounds equal bilaterally. GASTROINTESTINAL: Abdomen soft, non-tender, nondistended. No hepato-splenomegaly , or palpable masses. No guarding. Bowel sounds present. GENITOURINARY: Without palpable bladder distension. Soto catheter in place. MUSCULOSKELETAL: Extremities without clubbing, cyanosis, or edema. SCDs in place. LYMPHATICS: No palpable cervical or supraclavicular adenopathy. NEUROLOGICAL: Awake and alert. Motor and sensory grossly within normal limits. Follows commands. Confused. PSYCHIATRIC: No obvious anxiety/depression. no apparent hallucinations or other psychotic thought process. Diagnostic Tests Laboratory Laboratory Tests Test 01/01/17 01/02/17 01/02/17 01/03/17 05:51 06:28 11:32 05:23 White Blood Count 5.9 TH/MM3 (4.0-11.0) Red Blood Count 3.27 MIL/MM3 (4.50-5.90) Hemoglobin 10.1 GM/DL (13.0-17.0) Hematocrit 30.4 % (39.0-51.0) Mean Corpuscular Volume 93.1 FL (80.0-100.0) Mean Corpuscular Hemoglobin 30.9 PG (27.0-34.0) Mean Corpuscular Hemoglobin 33.2 % Concent (32.0-36.0) Red Cell Distribution Width 13.5 % (11.6-17.2) Platelet Count 63 TH/MM3 (150-450) Mean Platelet Volume 10.3 FL (7.0-11.0) Neutrophils (%) (Auto) 73.3 % (16.0-70.0) Lymphocytes (%) (Auto) 16.2 % (9.0-44.0) Monocytes (%) (Auto) 9.5 % (0.0-8.0) Eosinophils (%) (Auto) 0.8 % (0.0-4.0) Basophils (%) (Auto) 0.2 % (0.0-2.0) Neutrophils # (Auto) 4.3 TH/MM3 (1.8-7.7) Lymphocytes # (Auto) 1.0 TH/MM3 (1.0-4.8) Monocytes # (Auto) 0.6 TH/MM3 (0-0.9) Eosinophils # (Auto) 0.0 TH/MM3 (0-0.4) Basophils # (Auto) 0.0 TH/MM3 (0-0.2) CBC Comment AUTO DIFF Differential Comment AUTO DIFF CONFIRMED Platelet Estimate LOW (NORMAL) Platelet Morphology Comment ENLARGED (NORMAL) Ovalocytes 1+ (NORMAL) Acanthocytes OCC (NORMAL) Sodium Level 146 MEQ/L 144 MEQ/L 140 MEQ/L (136-145) (136-145) (136-145) Potassium Level 4.2 MEQ/L 4.5 MEQ/L 4.2 MEQ/L (3.5-5.1) (3.5-5.1) (3.5-5.1) Chloride Level 114 MEQ/L 111 MEQ/L 108 MEQ/L (98-107) (98-107) (98-107) Carbon Dioxide Level 21.5 MEQ/L 20.0 MEQ/L 19.7 MEQ/L (21.0-32.0) (21.0-32.0) (21.0-32.0) Anion Gap 11 MEQ/L (5-15) 13 MEQ/L (5-15) 12 MEQ/L (5-15) Blood Urea Nitrogen 26 MG/DL (7-18) 25 MG/DL (7-18) 22 MG/DL (7-18) Creatinine 1.66 MG/DL 1.61 MG/DL 1.69 MG/DL (0.60-1.30) (0.60-1.30) (0.60-1.30) Estimat Glomerular Filtration 48 ML/MIN (>89) 50 ML/MIN (>89) 47 ML/MIN (>89) Rate Random Glucose 145 MG/DL 135 MG/DL 148 MG/DL (74-106) (74-106) (74-106) Calcium Level 8.1 MG/DL 8.0 MG/DL 8.2 MG/DL (8.5-10.1) (8.5-10.1) (8.5-10.1) Phosphorus Level 2.5 MG/DL (2.5-4.9) Magnesium Level 2.2 MG/DL (1.5-2.5) B-Type Natriuretic Peptide 134 PG/ML (0-100) Result Diagram: 01/01/17 0551 01/03/17 0523 Imaging Last Impressions Lower Extremity Ultrasound 12/31/16 Signed Impressions: Service Date/Time: Saturday, December 31, 2016 08:38 - CONCLUSION: Normal examination. Richard Hauser MD Chest X-Ray 12/30/16 0000 Signed Impressions: Service Date/Time: Friday, December 30, 2016 03:30 - CONCLUSION: No acute disease. Matt Morrow MD Brain MRI 2/25/17 0000 Signed Impressions: Service Date/Time: Friday, December 30, 2016 11:19 - CONCLUSION: Brain MRI within normal limits. Lavelle Anaya MD Neck CTA 12/29/16 Signed Impressions: Service Date/Time: Thursday, December 29, 2016 11:19 - CONCLUSION: 1. Patent carotid arteries and vertebral arteries. The left vertebral is dominant. 2. 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 Harish Agrawal Jr., MD Head CTA 12/29/16 Signed Impressions: Service Date/Time: Thursday, December 29, 2016 11:19 - CONCLUSION: Normal examination. Harish Agrawal Jr., MD Head CT 12/29/16 Signed Impressions: Service Date/Time: Thursday, December 29, 2016 11:19 - CONCLUSION: 1. Bilateral cortical atrophy. 2. No acute intracranial hemorrhage. 3. Stable exam compared to the prior study from 2013. Mehdi Pope MD Carotid Artery Ultrasound 12/29/16 Signed Impressions: Service Date/Time: Thursday, December 29, 2016 18:10 - CONCLUSION: Atherosclerotic plaque of both carotid bifurcations, mild on the right and moderate on the left. No hemodynamically significant narrowing on either side. Richard Hauser MD Assessment and Plan Disease Oriented Problem List: (1) Dementia Comment: Not end-stage Alzheimer's (2) CKD (chronic kidney disease) stage 4, GFR 15-29 ml/min (3) Hypernatremia (4) Dehydration (5) SARAI (acute kidney injury) (6) DKA (diabetic ketoacidoses) (7) CVA (cerebral vascular accident) Comment: cva like episode, but MRI was negative. Symptom Scale: (1) Confusion Pertinent Non-Medical Issues Psychosocial: Spiritual: Legal: Ethical issues impacting care: Important Contacts Gricelda [phone] Janice Gonzalez [phone] Prognosis 86-year-old with a history of dementia, history of DKA and hyperglycemia. Although dementia is not end-stage at this point, currently there is a convergence of multiple issues that make patient's very fragile. Patient is losing weight, recently intubated although successfully extubated, poor appetite. Would meet hospice criteria of goals of care were comfort measures only, warrants evaluation, and family decides to. Code Status: Full Code Plan == Capacity- pt has no capacity to make medical decision. ==Health Care Proxy- spouse. Spouse however wants their 2 children Gricelda( daughter RN) and Blanche(son) to make decisions. spoke with daughter. I am currently not able to reach son. Gricelda is an RN. Reviewed with her pt's course of hospitalization which she has a firm grasp on. She state that before current hospitalization, pt have been relatively functional; doing his own adls (bathing, feeding). His short term memory has been poor. She state she has not have recent prior hospitalization. She endorses that is compliant with his meds, and had been on insulin before, but due to hypoglycemia, has been swictch back to oral. Discussed pt's challenges, hyperglycemia, and future risk of tia or stroke, hosptialization. Reviewed pt's hx of dementia which daughter state its mild. Pt has had wt loss, which daughter attributes is due to his dentition. "He eats 5 meals per day. and in small portions. He worries, he will choke on his tooth." For now pt's daughter's goals is to get pt to SNF/ get stronger and to go back home if he is able to. Hospice was brought up in our conversation and she said not at this time. Reviewed with Gricelda time to reconsider hospice, if pt is not doing well in rehab, multiple hospitalization, continue wt loss etc... Review code status- She said she wants to speak with mother. Pt is to remain full code. Reviewed trach and peg, which she states likely pt would not want. ==Goals of care: aggressive. == full code . == Pt denies any pain or dyspnea. Confusion- appears to be at baseline. == palliative care will continue to follow up. Time Spent Total Floor Time (mins): 35 Face to Face Time (mins): 20 Attestation To help prompt me to consider important information that might be impacting today's encounter and assessment, information from prior notes written by myself or my colleagues may have been "brought forward" into today's note. My signature on this note, however, is an attestation that I personally performed the exam, history, and/or decision-making noted today, and, unless otherwise indicated, the interactions with patient, family, and staff as well as the review of records all occurred today. I also attest that the listed assessment and stated plan reflect my best clinical judgment today based on the combination of historical information, prior notes, and today's exam/ interactions. When time spent is documented, it refers only to time spent today by the signer, or if indicated, combined time spent today by collaborating physician/nurse practitioner. Toan Thomas MD Jan 03, 2017 10:56
[2017-01-03 12:00] VITALS: BP 133/83; PULSE 77; RESP 18; TEMP 97.7; O2SAT 99
[2017-01-03] MEDS ORDERED: Artificial Tears Opth Soln EACH EYE (13:40)
[2017-01-03] MEDS ORDERED: ASPI325T PO (13:40)
[2017-01-03] MEDS ORDERED: NOVOLOGSS SQ (13:40)
[2017-01-03] MEDS ORDERED: DOCU1CAP39 PO (13:40)
--- NOTE | 2017-01-03 13:51 | HHI.DS ---
Discharge Summary Admission Date Dec 27, 2016 at 13:39 Discharge Date: Jan 03, 2017 Admitting Diagnosis DKA, SARAI (1) CVA (cerebral vascular accident) Diagnosis: Principal (2) DKA (diabetic ketoacidoses) Diagnosis: Principal (3) SARAI (acute kidney injury) Diagnosis: Principal (4) Altered mental status Diagnosis: Principal (5) HTN (hypertension) Diagnosis: Secondary (6) Hyperlipidemia Diagnosis: Secondary (7) Dementia Diagnosis: Secondary (8) Poor dental hygiene Diagnosis: Secondary Consultants Dr. Susan Farrell, Neurology Dr. Toan Thomas, Palliative Care Brief History Mr. Gonzalez is an 84 y/o AAM with diabetes mellitus, noncompliant, hx of DKA, dementia, CKD, hypertension, dyslipidemia, and hypothyroidism who presented to the ED at [facility] with reported loss of appetite, weakness and confusion x 2 days. Per ED documentation the patient was brought from home where he lives with his . He has not been eating for 2 days and has not taken any of his medications in 2 days. The patient is reportedly more confused than his baseline. The patient is awake, alert and oriented to person and place but he is unable to provide any reliable information at the time of exam and the history was obtained from the chart and old records. Pts labs at admission noted acute kidney injury with an elevated creatinine of 4.9, BUN 79, GFR 14, hyperkalemia with a potassium of 5.6, elevated bicarbonate of 20.7, hyperglycemia critically elevated at 876. He was also noted to have a mildly elevated troponin at 0.07, likely secondary to dehydration. Beta hydroxybutyrate is elevated at 4.46. Urinalysis shows glucosuria and 10 ketones. He was started on Insulin gtt in the ER per protocol. He denies any complaints at the time of examination, specifically any chest pain, shortness of breath, abdominal pain, nausea, vomiting, diarrhea, headache, lightheadedness , or dizziness. CBC/BMP: 01/01/17 0551 01/03/17 0523 Significant Findings Laboratory Tests Test 01/01/17 01/02/17 01/02/17 01/03/17 05:51 06:28 11:32 05:23 Red Blood Count 3.27 MIL/MM3 (4.50-5.90) Hemoglobin 10.1 GM/DL (13.0-17.0) Hematocrit 30.4 % (39.0-51.0) Platelet Count 63 TH/MM3 (150-450) Neutrophils (%) (Auto) 73.3 % (16.0-70.0) Monocytes (%) (Auto) 9.5 % (0.0-8.0) Platelet Estimate LOW (NORMAL) Platelet Morphology Comment ENLARGED (NORMAL) Ovalocytes 1+ (NORMAL) Sodium Level 146 MEQ/L (136-145) Chloride Level 114 MEQ/L 111 MEQ/L 108 MEQ/L (98-107) (98-107) (98-107) Blood Urea Nitrogen 26 MG/DL (7-18) 25 MG/DL (7-18) 22 MG/DL (7-18) Creatinine 1.66 MG/DL 1.61 MG/DL 1.69 MG/DL (0.60-1.30) (0.60-1.30) (0.60-1.30) Estimat Glomerular Filtration 48 ML/MIN (>89) 50 ML/MIN (>89) 47 ML/MIN (>89) Rate Random Glucose 145 MG/DL 135 MG/DL 148 MG/DL (74-106) (74-106) (74-106) Calcium Level 8.1 MG/DL 8.0 MG/DL 8.2 MG/DL (8.5-10.1) (8.5-10.1) (8.5-10.1) B-Type Natriuretic Peptide 134 PG/ML (0-100) Carbon Dioxide Level 20.0 MEQ/L 19.7 MEQ/L (21.0-32.0) (21.0-32.0) Imaging Last Impressions Lower Extremity Ultrasound 12/31/16 0000 Signed Impressions: Service Date/Time: Saturday, December 31, 2016 08:38 - CONCLUSION: Normal examination. Richard Hauser MD Chest X-Ray 12/30/16 0000 Signed Impressions: Service Date/Time: Friday, December 30, 2016 03:30 - CONCLUSION: No acute disease. Matt Morrow MD Brain MRI 12/30/16 0000 Signed Impressions: Service Date/Time: Friday, December 30, 2016 11:19 - CONCLUSION: Brain MRI within normal limits. Lavelle Anaya MD Neck CTA 12/29/16 0000 Signed Impressions: Service Date/Time: Thursday, December 29, 2016 11:19 - CONCLUSION: 1. Patent carotid arteries and vertebral arteries. The left vertebral is dominant. 2. 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 Harish Agrawal Jr., MD Head CTA 12/29/16 0000 Signed Impressions: Service Date/Time: Thursday, December 29, 2016 11:19 - CONCLUSION: Normal examination. Harish Agrawal Jr., MD Head CT 12/29/16 0000 Signed Impressions: Service Date/Time: Thursday, December 29, 2016 11:19 - CONCLUSION: 1. Bilateral cortical atrophy. 2. No acute intracranial hemorrhage. 3. Stable exam compared to the prior study from 2013. Mehdi Pope MD Carotid Artery Ultrasound 12/29/16 0000 Signed Impressions: Service Date/Time: Thursday, December 29, 2016 18:10 - CONCLUSION: Atherosclerotic plaque of both carotid bifurcations, mild on the right and moderate on the left. No hemodynamically significant narrowing on either side. Richard Hauser MD PE at Discharge GENERAL: This is a well-nourished, well-developed patient, in no apparent distress. CARDIOVASCULAR: Regular rate and rhythm without murmurs, gallops, or rubs. RESPIRATORY: Clear to auscultation. Breath sounds equal bilaterally. No wheezes , rales, or rhonchi. GASTROINTESTINAL: Abdomen soft, non-tender, nondistended. Normal active bowel sounds MUSCULOSKELETAL: Extremities without clubbing, cyanosis, or edema. NEURO: Alert & Oriented x2, but confused at times. muscle strength: 4/5 LUE and LLE; 5/5 RUE & RLE Hospital Course (1) CVA (cerebral vascular accident) Status: Acute Plan: - diagnosis made on clinical basis - neuroimaging does NOT show ischemic changes - EEG (12/29/16) --> abnormal study, slowing, c/w encephalomalacia, no epileptiform activity noted - Echocardiogram (12/30/16) --> EF 55-60% - PT/ST - supportive care - diet upgraded to pureed (01/01/17) - discharge to SNF - see d/c orders - f/u with Neurology in (2) DKA (diabetic ketoacidoses) Status: Acute Plan: - resolved - Pt was brought to the ED on 12/27/16 with loss of appetite, weakness and confusion x 2 days. - He has reportedly had poor oral intake and had not taken any of his medications in 2 days. - HgA1C 10.3 (12/27/16) - Hypernatremia, slowly improving - off insulin gtt - SSI - will need SNF upon discharge - F/u with Neurology in 4 weeks - Hospice should be considered if pt fails to improve or further declines - see discharge orders (3) SARAI (acute kidney injury) Status: Acute Plan: - See above. - Likely secondary to dehydration - improved with IVFs - Cr 4.90 (12/27/16), Cr 1.66 (12/31/16) - Monitor labs (4) Altered mental status Status: Chronic Plan: - Improved to likely baseline - Pt with baseline dementia but reportedly more confused on admission than baseline, likely secondary to DKA - Resumed Aricept - Appreciate input from Palliative Service, Dr. Thomas. (5) HTN (hypertension) Status: Chronic Plan: - Lisinopril to be resumed upon discharge - Clonidine PRN - Monitor (6) Hyperlipidemia Status: Chronic Plan: - Cont. home meds (7) Dementia Status: Chronic Plan: - see above (8) Poor dental hygiene Status: Acute Plan: - pt has a lower incisor that is loose and needs dental extraction to avoid aspiration risk - maxillofacial service requests that pt f/u in their office outpt Pt Condition on Discharge: Stable Discharge Disposition: Discharge to SNF Discharge Instructions DIET: Follow Instructions for: Heart Healthy Diet, Diabetic Diet Speech Therapy-Diet Recommends: Pureed Activities you can perform: Weight Bearing as Param Follow up Referrals: Neurology - 4 Weeks with Susan Farrell MD Oral Maxillary Surgery with Harjeet Chavira DDS PCP Follow-up - [address] Raciel Dow New Medications: Aspirin (Aspirin) 325 Mg Tab 325 MG PO DAILY cva #30 Ref 0 TAB Docusate Sodium (Dok) 100 Mg Cap 100 MG PO BID constipation Days 28 Ref 0 CAP Insulin Aspart Inj (Novolog Inj) 100 Unit/Ml Inj 1 UNITS SQ Q4HR use halifax medium dose sliding scale dm Days 30 INJECTION ([Artificial Tears Opth Soln]) 300 DROP/15 ML SOLN 1 DROP EACH EYE TID dry eyes Days 30 Ref 0 BOTTLE Continued Medications: Donepezil (Aricept) 10 Mg Tab 10 MG PO HS Dementia #30 Ref 0 TAB Levothyroxine (Levothyroxine) 75 Mcg Tab 75 MCG PO DAILY Thyroid #30 Ref 0 TAB Lisinopril (Lisinopril) 10 Mg Tab 10 MG PO DAILY #30 Ref 0 TAB Lovastatin (Lovastatin) 20 Mg Tab 20 MG PO DAILY Cholesterol Management #30 Ref 0 TAB Discontinued Medications: Glimepiride (Glimepiride) 4 Mg Tab 4 MG PO BIDAC Blood Sugar Management #60 Ref 0 TAB Roman Meyer DO Jan 03, 2017 13:50
--- NOTE | 2017-01-03 13:52 | HHI.DCPOC ---
Discharge Care Plan Diagnosis: (1) CVA (cerebral vascular accident) (2) DKA (diabetic ketoacidoses) (3) Dementia (4) CKD (chronic kidney disease) stage 4, GFR 15-29 ml/min (5) HTN (hypertension) (6) Hyperlipidemia (7) Hypothyroid (8) Generalized weakness Goals to Promote Your Health * To prevent worsening of your condition and complications * To maintain your health at the optimal level Directions to Meet Your Goals Take your medications as prescribed Follow your dietary instruction Follow activity as directed Keep your appointments as scheduled Take your immunizations and boosters as scheduled If your symptoms worsen call your PCP, if no PCP go to Urgent Care Center or Emergency Room Smoking is Dangerous to Your Health. Avoid second hand smoke Call the 24-hour hour crisis hotline for domestic abuse at Roman Meyer DO Jan 03, 2017 13:52
[2017-01-03 15:40] VITALS: BP 154/81; PULSE 70; RESP 17; TEMP 97.8; O2SAT 100
== END 2017-01-03 19:11 | DRG 637 ==
LOC: NEPC 11:11 → NEDA 13:39 → NEDH 19:31 → HIME 21:35 → N06B 01-01 23:22
PROVIDERS: ADMIT Hospitalist; ATTEND Hospitalist
PROC: 0BH17EZ Insertion of Endotracheal Airway into Trachea, Via Natural or Artificial Opening (ICD-10-PCS; principal; 2016-12-29)
PROC: 5A1945Z Respiratory Ventilation, 24-96 Consecutive Hours (ICD-10-PCS; 2016-12-29)
DX: E13.10 Other specified diabetes mellitus with ketoacidosis without coma (principal); J96.01 Acute respiratory failure with hypoxia; I63.9 Cerebral infarction, unspecified; E87.0 Hyperosmolality and hypernatremia; N18.4 Chronic kidney disease, stage 4 (severe); D69.6 Thrombocytopenia, unspecified; G93.89 Other specified disorders of brain; N17.9 Acute kidney failure, unspecified; F03.90 Unspecified dementia, unspecified severity, without behavioral disturbance, psychotic disturbance, mood disturbance, and anxiety; E87.5 Hyperkalemia; E86.0 Dehydration; R74.8 Abnormal levels of other serum enzymes; E78.5 Hyperlipidemia, unspecified; I12.9 Hypertensive chronic kidney disease with stage 1 through stage 4 chronic kidney disease, or unspecified chronic kidney disease; R81 Glycosuria; E03.9 Hypothyroidism, unspecified; K08.89 Other specified disorders of teeth and supporting structures; I25.10 Atherosclerotic heart disease of native coronary artery without angina pectoris; D75.89 Other specified diseases of blood and blood-forming organs; Z51.5 Encounter for palliative care; Z91.19 Patient's noncompliance with other medical treatment and regimen; Z79.84 Long term (current) use of oral hypoglycemic drugs
CPT/HCPCS: 31500; 36600; 70450; 70496; 70498; 70551; 71010; 76937; 80048; 80053; 81001; 82010; 82550; 82552; 82805; 82948; 83036; 83735; 83880; 84100; 84155; 84484; 85007; 85025; 85027; 85384; 85610; 85730; 86850; 86900; 86901; 87040; 87070; 87086; 87205; 87641; 93005; 93306; 93880; 93970; 94002; 94003; 94150; 94640; 94664; 95819; 96360; C9113; J1815; J1817; J2250; J3475; J3480; J7030; J7070; Q9967